=== PATIENT | male | born 1960 | race Hispanic/Latino ===

== ENCOUNTER 2016-08-05 11:13 | Outpatient (CLI) | payer BC ==
[2016-08-05 11:26] LABS: Basophils % (Auto) 0.7 % (0.0-1.8); Eosinophils % (Auto) 3.4 % (0.0-4.3); Hematocrit 44.3 % (35.5-45.6); Mean Corpuscular HGB Conc 34 % (32-34); Mean Corpuscular Hemoglobin 34 pg (28-32); Mean Corpuscular Volume 101 fl (84-94); Platelet Count 271 K/mm3 (140-440); Red Blood Count 4.39 M/mm3 (3.65-5.03); Red Cell Distribution Width 13.5 % (13.2-15.2)
[2016-08-05 12:19] LABS: Bilirubin,Urine NEG (Negative); Blood,Urine NEG (Negative); Ketones,Urine NEG (Negative); Leukocyte Esterase,Urine NEG (Negative); Mucus,Urine FEW /HPF; Nitrite,Urine NEG (Negative); Protein,Urine <15 mg/dL mg/dL (Negative); Urobilinogen,Urine < 2.0 mg/dL (<2.0)
[2016-08-05 12:29] LABS: WBC,Urine < 1.0 /HPF (0.0-6.0)
== END 2016-08-05 11:14 | disposition home or self-care (01) ==
LOC: LAB 11:13
PROVIDERS: ATTEND Anesthesiology
DX: Z79.01 Long term (current) use of anticoagulants (principal)
CPT/HCPCS: 36415; 81001; 82043; 85025; 85610

== ENCOUNTER 2018-01-23 10:31 | Outpatient (CLI) | payer BC ==
--- NOTE | 2018-01-23 12:34 | Cat Scan Report ---
CT scan of the abdomen and pelvis without IV contrast: History: Hematuria. Findings: There is focal ill-defined noncalcified nodular lesion measuring 4 mm in diameter noted at the right lung paravertebral region best seen on series 2 image 31. Normal liver spleen and pancreas. Patient status post cholecystectomy. Normal adrenals. Patient status post left nephrectomy. 3 mm and a 4 mm nonobstructing calculus right kidney. Normal bladder. No free intraperitoneal fluid or air. No evidence of adenopathy. Normal aorta. No evidence of appendicitis or diverticulitis. Gaseous colon with minimal stool in colon. Impression: Nonobstructing calculi right kidney. Patient status post left nephrectomy. Focal nodule right lung. Further evaluation is recommended.
== END 2018-01-23 10:32 | disposition home or self-care (01) ==
LOC: CT 10:31
PROVIDERS: ATTEND Urology
DX: N20.0 Calculus of kidney (principal); R91.1 Solitary pulmonary nodule; I10 Essential (primary) hypertension; E78.5 Hyperlipidemia, unspecified; E78.00 Pure hypercholesterolemia, unspecified; E66.9 Obesity, unspecified; Z87.891 Personal history of nicotine dependence; J44.9 Chronic obstructive pulmonary disease, unspecified; Z90.5 Acquired absence of kidney
CPT/HCPCS: 74176

== ENCOUNTER 2018-02-09 14:20 | Outpatient (CLI) | payer BC ==
--- NOTE | 2018-02-09 18:07 | Cat Scan Report ---
FINAL REPORT PROCEDURE: CT CHEST WO CON TECHNIQUE: Computerized axial tomography of the chest was performed without contrast material. This study is performed without intravenous contrast and the sensitivity for pathology, including neoplasms, adenopathy, abscess, pulmonary embolism and aortic dissection, is reduced. HISTORY: PULMONARY NODULE COMPARISON: CT abdomen pelvis 01/23/2018 TECHNICAL QUALITY: Satisfactory. FINDINGS: Heart and pericardium: No pericardial effusion or thickening. Coronary artery calcification is present. Thoracic aorta: Normal. Pulmonary vasculature: Normal. Lymph nodes: No enlarged thoracic lymph nodes. Lungs: No infiltrate or pulmonary lesions are identified. Previously seen medial right lung base pulmonary nodule is decreased in size, now measuring 3 millimeters and is faint in density. There is a punctate probably calcified granuloma measuring 2 millimeters in the lingula. Pleural space: No effusion, thickening, or pneumothorax. Musculoskeletal structures: Spinal stimulating device is present. Upper abdominal structures: Numerous small upper abdominal lymph nodes are present. IMPRESSION: Previously seen right lung base pulmonary nodule is resolving, now decreased in size and fainter in density.
== END 2018-02-09 14:21 | disposition home or self-care (01) ==
LOC: CT 14:20
PROVIDERS: ATTEND Specialist
DX: R91.1 Solitary pulmonary nodule (principal); E78.5 Hyperlipidemia, unspecified; I25.10 Atherosclerotic heart disease of native coronary artery without angina pectoris; E78.00 Pure hypercholesterolemia, unspecified; I10 Essential (primary) hypertension; E66.9 Obesity, unspecified; M19.90 Unspecified osteoarthritis, unspecified site; F17.210 Nicotine dependence, cigarettes, uncomplicated; Z88.6 Allergy status to analgesic agent
CPT/HCPCS: 71250

== ENCOUNTER 2018-07-07 07:54 | Outpatient (CLI) | payer BC ==
[2018-07-07] MEDS ORDERED: LEXISCAN IV ONE ×2 (09:08→09:20)
[2018-07-07 11:51] VITALS: BP 112/70
--- NOTE | 2018-07-07 22:08 | Treadmill Report ---
NUCLEAR STRESS TEST REPORT The patient was brought to the nuclear cardiology lab and a Lexiscan stress test is performed and the patient tolerated the procedure well. The patient had no significant arrhythmias or definite ischemic abnormalities or angina pectoris. Post-stress images reveal homogeneous distribution of the isotope with no significant reversibility during the rest. Accompanying gated study shows excellent systolic function with no wall motion abnormalities. Calculated ejection fraction is noted to be 71%. IMPRESSION: 1. Nuclear stress test is noted to be negative for significant reversible defects to indicate ischemia. Accompanying gated study showed excellent systolic function with no significant wall motion abnormalities. Ejection fraction is calculated to be 71%. 2. Suggest clinical correlation. JOB# [id number] KBM/NTS
== END 2018-07-07 07:55 | disposition home or self-care (01) ==
LOC: CARD 07:54
PROVIDERS: ATTEND Internal Medicine Cardiovascular Disease
DX: Z01.810 Encounter for preprocedural cardiovascular examination (principal); I25.10 Atherosclerotic heart disease of native coronary artery without angina pectoris; I25.2 Old myocardial infarction; E78.49 Other hyperlipidemia; R00.1 Bradycardia, unspecified; K21.9 Gastro-esophageal reflux disease without esophagitis; E78.5 Hyperlipidemia, unspecified; Z86.39 Personal history of other endocrine, nutritional and metabolic disease; Z95.5 Presence of coronary angioplasty implant and graft; Z87.891 Personal history of nicotine dependence
CPT/HCPCS: 78452; 93017; A9502; J2785

== ENCOUNTER 2018-07-27 06:07 | Inpatient (IN) | payer BC ==
--- NOTE | 2018-07-20 08:45 | Anesthesia Consultation ---
Anesthesia Consult and Med Hx Date of service: 07/20/18 - Airway Anesthetic Teeth Evaluation: Poor ROM Head & Neck: Adequate Mental/Hyoid Distance: Adequate Mallampati Class: Class II Intubation Access Assessment: Probably Good - Pulmonary Exam CTA: Yes - Cardiac Exam Cardiac Exam: RRR - Pre-Operative Health Status ASA Pre-Surgery Classification: ASA3 Proposed Anesthetic Plan: General Nerve Block: NO SPINAL , Pt had Multiple Back Surgeries (EF 70 % per cardiology, pt has multiple stents, hx of SD. smoker, possible art line in AM) - Pulmonary Hx Smoking: Yes (1 PPD X 45 YRS) Hx Asthma: No Hx Respiratory Symptoms: No COPD: Yes ( INHALERS PRN) Hx Pneumonia: No Hx Sleep Apnea: Yes (DX SLEEP APNEA WITH CPAP USE.) - Cardiovascular System Hx Hypertension: No Hx Coronary Artery Disease: Yes Hx Heart Attack/AMI: Yes (2004) Hx Percutaneous Transluminal Coronary Angioplasty (PTCA): Yes (X2 2004 , X 2 2014) Hx Cardia Arrhythmia: No Hx Pacemaker: No Hx Internal Defibrillator: No Hx Heart Murmur: No Hx Peripheral Vascular Disease: No - Central Nervous System Hx Neuromuscular Disorder: No (foot drop, DDD) Hx Seizures: No CVA: No Hx Back Pain: Yes (CHRONIC , WITH LEG PAIN AND WEAKNESS) Hx Psychiatric Problems: No - Gastrointestinal Hx Ulcer: Yes Hx Gastroesophageal Reflux Disease: Yes (controlled s/p ilir) - Endocrine Hx Renal Disease: Yes (polycystic kidney disease, s/p right nephrectomy) Hx End Stage Renal Disease: No Hx Insulin Dependent Diabetes: No Hx Non-Insulin Dependent Diabetes: No Hx Thyroid Disease: No - Other Systems Hx Alcohol Use: Yes (social) Hx Substance Use: No Hx Cancer: No
[~2018-07-27 06:07] MED LIST: ANCEF/STERILE WATER 2 GM/20 ML IV NR; CLORPACTIN WCS-90 IR ONE; MARCAINE 0.25% INFILTRATI ONE; MORPHINE IM ONE; NEURONTIN PO NR; PEPCID IV NR; TORADOL IM ONE
[2018-07-27] MEDS ORDERED: NACL ONE (06:33)
[2018-07-27] MEDS ORDERED: POLYMYXIN B SULFATE IV ONE ×2 (06:33→09:45)
[2018-07-27] MEDS ORDERED: TORADOL ONE (06:33)
[2018-07-27] MEDS ORDERED: MARCAINE 0.25% INFILTRATI ONE ×2 (06:33→10:49)
[2018-07-27] MEDS ORDERED: TRANEXAMIC ACID ONE (06:33)
[2018-07-27] MEDS ORDERED: BACITRACIN ONE (06:34)
[2018-07-27] MEDS ORDERED: CLORPACTIN WCS-90 IR ONE ×2 (06:34→10:20)
[2018-07-27] MEDS ORDERED: MORPHINE ONE (06:34)
[2018-07-27] MEDS: LACTATED RINGERS 1,000 ML IV SCH ×2 (06:50→15:30)
[2018-07-27 06:58] LABS: INR 1.08 (0.87-1.13)
[2018-07-27 06:59] LABS: Partial Thromboplastin Time 29.7 Sec. (24.2-36.6)
[2018-07-27] MEDS ORDERED: VERSED ONE (07:14)
[2018-07-27] MEDS ORDERED: XYLOCAINE MPF 2% ONE ×3 (07:14→10:30)
[2018-07-27] MEDS ORDERED: ZEMURON IV ONE (07:14)
[2018-07-27] MEDS ORDERED: SUBLIMAZE ONE (07:14)
[2018-07-27] MEDS ORDERED: DIPRIVAN 10 MG/ML IV ONE (07:14)
[2018-07-27] MEDS ORDERED: NACL 0.9% 250ML 250 ML ONE (07:16)
[2018-07-27] MEDS ORDERED: NACL 0.9% 200 ML ONE (07:16)
[2018-07-27] MEDS ORDERED: NACL INFILTRATI ONE (07:30)
[2018-07-27] MEDS ORDERED: TRANEXAMIC ACID IV ONE (07:50)
[2018-07-27] MEDS ORDERED: KETALAR ONE (08:14)
[2018-07-27] MEDS ORDERED: NEO SYNEPHRINE/NS Syringe(OR USE) IV ONE (08:28)
[2018-07-27] MEDS ORDERED: ACD-A 500 ML IV ONE (08:40)
[2018-07-27] MEDS ORDERED: NACL 0.9% IR ONE ×2 (08:40→09:45)
[2018-07-27] MEDS ORDERED: DILAUDID IV PRN (08:55)
[2018-07-27] MEDS ORDERED: ZOFRAN IV PRN ×3 (08:55→22:39)
[2018-07-27] MEDS ORDERED: NACL P/F VIAL (10 ML) 20 ML ONE (09:12)
[2018-07-27] MEDS ORDERED: LACTATED RINGERS 1,000 ML ONE (09:24)
[2018-07-27] MEDS ORDERED: DECADRON ONE (09:35)
[2018-07-27] MEDS ORDERED: BACITRACIN IR ONE (09:45)
[2018-07-27] MEDS ORDERED: BLOXIVERZ ONE (10:48)
[2018-07-27] MEDS ORDERED: ROBINUL ONE (10:48)
[2018-07-27] MEDS ORDERED: MORPHINE IM ONE (10:49)
[2018-07-27] MEDS ORDERED: TORADOL IM ONE (10:49)
[2018-07-27] MEDS ORDERED: PHENERGAN PR PRN (11:42)
[2018-07-27] MEDS ORDERED: NON-FORMULARY (Budesonide/Formoterol Fumarate [Symbicort 160-4.5 Mcg Inhaler] 10.2 GM) IH PRN (11:49)
[2018-07-27] MEDS ORDERED: ACLIDINIUM BROMIDE 400 MCG IH PRN (11:49)
[2018-07-27] MEDS ORDERED: SODIUM CHLORIDE FLUSH SYRINGE 10 ML IV NR (12:00)
[2018-07-27] MEDS ORDERED: PULMICORT IH PRN (12:36)
[2018-07-27] MEDS ORDERED: BROVANA NEBU IH PRN (12:39)
--- NOTE | 2018-07-27 13:27 | XRay Report ---
AP PELVIS: HISTORY: Postop ROXIE. Left hip replacement appears intact. No fracture or malalignment. Neurostimulator in the left lower quadrant is partially imaged. No evidence for pelvic fracture or diastasis. Osteonecrosis of the right femoral head with collapse is identified. IMPRESSION: Stable appearance of a left hip replacement. 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
[2018-07-27] MEDS ORDERED: NEURONTIN PO SCH ×2 (14:00→22:00)
--- NOTE | 2018-07-27 14:12 | Anesthesia Day of Surgery ---
Anesthesia Day of Surgery - Day of Surgery Patient Examined: Yes Patient H&P Reviewed: Yes Patient is NPO: Yes
--- NOTE | 2018-07-27 14:12 | Post Anesthesia Evaluation ---
- Post Anesthesia Evaluation Patient Participated: Yes Airway Patent: Yes Stable Respiratory Function: Yes Nausea/Vomiting: No Temp > 96.8F: Yes Pain Manageable: Yes Adequeate Hydration: Yes Anesthesia Complications: No
[2018-07-27] MEDS: NORCO 10/325 PO PRN ×2 (16:36→22:06)
[2018-07-27] MEDS: TORADOL IV PRN ×2 (16:36→23:59)
[2018-07-27] MEDS: ceFAZolin 2 GM in NACL 0.9% 100 ML IV SCH ×2 (17:43→23:51)
[2018-07-27] MEDS: PULMICORT IH SCH ×2 (20:06→21:26)
[2018-07-27] MEDS: BROVANA NEBU IH SCH ×2 (20:06→21:26)
[2018-07-27] MEDS: ASPIRIN PO SCH (21:56)
[2018-07-27] MEDS: COREG PO SCH (21:57)
[2018-07-27] MEDS: LIORESAL PO SCH (21:57)
[2018-07-27] MEDS: NEURONTIN PO SCH (21:58)
[2018-07-27] MEDS ORDERED: NON-FORMULARY (Famotidine [Pepcid] 20 MG) PO SCH (22:00)
[2018-07-27] MEDS ORDERED: NON-FORMULARY (Melatonin [Melatonin] 5 MG) PO SCH (22:00)
[2018-07-27] MEDS ORDERED: NON-FORMULARY (Gabapentin [Neurontin] 900 MG) PO SCH (22:00)
[2018-07-27] MEDS ORDERED: COLACE PO SCH (22:00)
[2018-07-27] MEDS ORDERED: PEPCID PO SCH (22:00)
[2018-07-27] MEDS: MUCINEX ER PO SCH (22:06)
[2018-07-27] MEDS ORDERED: ROXICODONE PO PRN (22:16)
--- NOTE | 2018-07-27 22:26 | History and Physical Report ---
History of Present Illness Date of examination: 07/27/18 Date of admission: 07/27/18 06:07 Chief complaint: He is status post left total hip replacement History of present illness: 58-year-old male with multiple medical problems including COPD hyperlipidemia hypertension peripheral neuropathy BPH depression and chronic pain admitted for left total hip arthroplasty. 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 Patient has left hip arthroplasty and in future will have a right hip arthroplasty. Patient has chronic pain. No shortness of breath Past History Past Medical History: CAD, COPD, GERD, hypertension, hyperlipidemia, other (BPH) Past Surgical History: total hip replacement (left), Other (multiple back surgeries) Social history: lives with family, full code Family history: hypertension Medications and Allergies Allergies Allergy/AdvReac Type Severity Reaction Status Date / Time No Known Allergies Allergy Verified 07/17/18 15:18 Home Medications Medication Instructions Recorded Confirmed Last Taken Type Aspirin [Aspirin BABY CHEW TAB] 81 mg PO DAILY 04/06/13 07/27/18 07/20/18 09:00 History Carvedilol [Coreg] 3.125 mg PO BID 04/06/13 07/27/18 07/27/18 05:00 History Clopidogrel [Plavix] 75 mg PO QDAY 04/06/13 07/27/18 07/20/18 09:00 History Famotidine [Pepcid] 20 mg PO BID 04/06/13 07/27/18 07/27/18 05:30 History Folic Acid 1 tab PO DAILY 04/06/13 07/27/18 07/26/18 09:00 History Fenofibrate Nanocrystallized 160 mg PO DAILY 01/29/14 07/27/18 07/26/18 21:00 History [Tricor] Gabapentin [Neurontin] 900 mg PO BID 01/29/14 07/27/18 07/26/18 21:00 History Melatonin 5 mg PO QHS 01/29/14 07/27/18 07/26/18 21:00 History Multivitamin [Multi Vitamin Daily] 1 tab PO DAILY 01/29/14 07/27/18 07/26/18 09:00 History Niacin (Nf) [Niacin] 500 mg PO HS 01/29/14 07/27/18 07/26/18 21:00 History Pravastatin Sodium [Pravastatin] 10 mg PO QHS 01/29/14 07/27/18 07/26/18 21:00 History Aclidinium [place] [Tudorza 400 mcg IH PRN PRN 07/17/18 07/27/18 07/27/18 05:00 History Pressair] Ascorbic Acid [Vitamin C] 1,000 mg PO DAILY 07/17/18 07/27/18 07/26/18 09:00 History Baclofen [Lioresal] 10 mg PO BID 07/17/18 07/27/18 07/26/18 21:00 History Budesonide/Formoterol Fumarate 10.2 gm IH PRN PRN 07/17/18 07/27/18 07/27/18 05:00 History [Symbicort 160-4.5 Mcg Inhaler] Buprenorphine [Butrans] 1 each TD QWEEK 07/17/18 07/17/18 Unknown History Docusate Sodium [Colace] 100 mg PO DAILY 07/17/18 07/27/18 07/26/18 09:00 History Esomeprazole Magnesium [NexIUM] 40 mg PO QDAY 07/17/18 07/27/18 07/26/18 09:00 History Ferrous Sulfate [Iron] 325 mg PO DAILY 07/17/18 07/27/18 07/26/18 09:00 History Oxybutynin Chloride [Ditropan Xl] 15 mg PO QDAY 07/17/18 07/27/18 07/27/18 05:00 History Oxycodone HCl/Acetaminophen 1 each PO PRN PRN 07/17/18 07/27/18 07/26/18 21:00 History [Endocet 7.5-325 mg Tablet] Sertraline [Zoloft] 200 mg PO QHS 07/17/18 07/17/18 Unknown History Tamsulosin HCl [Flomax] 0.8 mg PO DAILY 07/17/18 07/17/18 Unknown History guaiFENesin [Mucinex] 600 mg PO BID 07/17/18 07/27/18 07/26/18 21:00 History traZODone [Desyrel] 100 mg PO QHS 07/17/18 07/27/18 07/26/18 21:00 History Active Meds: Active Medications Acetaminophen/Hydrocodone Bitart (Secor 10/325) 1 each PO Q4H PRN PRN Reason: Pain, Moderate (4-6) Last Admin: 07/27/18 22:06 Dose: 1 each Documented by: Arformoterol Tartrate (Brovana Nebu) 15 mcg IH Q12H [facility] Last Admin: 07/27/18 21:26 Dose: 15 mcg Documented by: Ascorbic Acid (Vitamin C) 1,000 mg PO QDAY [facility] Aspirin (Aspirin) 325 mg PO BID [facility] Last Admin: 07/27/18 21:56 Dose: 325 mg Documented by: Baclofen (Lioresal) 10 mg PO BID [facility] Last Admin: 07/27/18 21:57 Dose: 10 mg Documented by: Budesonide (Pulmicort) 1 mg IH Q12H [facility] Last Admin: 07/27/18 21:26 Dose: 1 mg Documented by: Carvedilol (Coreg) 3.125 mg PO BID [facility] Last Admin: 07/27/18 21:57 Dose: Not Given Documented by: Celecoxib (Celebrex) 200 mg PO PREOP NR Stop: 07/27/18 23:59 Last Admin: 07/27/18 06:54 Dose: 200 mg Documented by: Docusate Sodium (Colace) 100 mg PO QOD [facility] Famotidine (Pepcid) 20 mg PO BID [facility] Last Admin: 07/27/18 21:56 Dose: 20 mg Documented by: Fenofibrate (Tricor) 160 mg PO DAILY [facility] Ferrous Sulfate (Feosol) 325 mg PO DAILY [facility] Gabapentin (Neurontin) 900 mg PO BID [facility] Last Admin: 07/27/18 21:58 Dose: 900 mg Documented by: Guaifenesin (Mucinex Er) 600 mg PO BID [facility] Last Admin: 07/27/18 22:06 Dose: 600 mg Documented by: Lactated Ringer's (Lactated Ringers) 1,000 mls @ 100 mls/hr IV DIRECT [facility] Last Admin: 07/27/18 15:30 Dose: 100 mls/hr Documented by: Cefazolin Sodium 2 gm/ Sodium (Chloride) 100 mls @ 200 mls/hr IV Q8HR [facility] Stop: 07/28/18 06:29 Last Admin: 07/27/18 17:43 Dose: 200 mls/hr Documented by: Ketorolac Tromethamine (Toradol) 15 mg IV Q6H PRN PRN Reason: Pain, Mild (1-3) Last Admin: 07/27/18 16:36 Dose: 15 mg Documented by: Magnesium Hydroxide (Milk Of Magnesia) 30 ml PO Q4H PRN PRN Reason: Constipation Miscellaneous Medication (Aclidinium [place] [Tudorza Pressair]) 400 mcg IH PRN PRN PRN Reason: Shortness Of Breath Miscellaneous Medication (Buprenorphine [Butrans]) 1 each TD QWEEK [facility] Miscellaneous Medication (Folic Acid [Folic Acid]) 1 tab PO DAILY [facility] Miscellaneous Medication (Melatonin [Melatonin]) 5 mg PO QHS [facility] Miscellaneous Medication (Niacin (Nf)) 500 mg PO HS [facility] Miscellaneous Medication (Oxybutynin Chloride [Ditropan Xl]) 15 mg PO QDAY [facility] Miscellaneous Medication (Oxycodone Hcl/Acetaminophen [Endocet 7.5-325 Mg Tablet]) 1 each PO PRN PRN PRN Reason: Pain , Severe (7-10) Miscellaneous Medication (Pravastatin Sodium [Pravastatin]) 10 mg PO QHS [facility] Ondansetron HCl (Zofran) 4 mg IV Q8H PRN PRN Reason: Nausea And Vomiting Pantoprazole Sodium (Protonix) 40 mg PO DAILY [facility] Promethazine HCl (Phenergan) 25 mg IN Q6H PRN PRN Reason: Nausea And Vomiting Sertraline HCl (Zoloft) 200 mg PO QHS [facility] Sodium Chloride (Sodium Chloride Flush Syringe 10 Ml) 10 ml IV PRN NR Stop: 07/30/18 11:59 Tamsulosin HCl (Flomax) 0.8 mg PO DAILY [facility] Trazodone HCl (Desyrel) 100 mg PO QHS [facility] Review of Systems All systems: negative Exam - Constitutional Vitals: Temp Pulse Resp BP Pulse Ox 98.4 F 63 18 90/48 98 07/27/18 20:05 07/27/18 21:32 07/27/18 21:32 07/27/18 21:57 07/27/18 21:33 General appearance: Present: no acute distress, well-nourished - EENT Eyes: Present: PERRL ENT: hearing intact, clear oral mucosa - Neck Neck: Present: supple, normal ROM - Respiratory Respiratory effort: normal Respiratory: bilateral: CTA - Cardiovascular Heart rate: 78 Rhythm: regular Heart Sounds: Present: S1 & S2. Absent: rub, click - Extremities Extremities: no ischemia, pulses intact, pulses symmetrical, No edema Peripheral Pulses: within normal limits - Abdominal General gastrointestinal: Present: soft, non-tender, non-distended, normal bowel sounds Male genitourinary: Present: normal - Rectal Rectal Exam: deferred - Integumentary Integumentary: Present: clear, warm, dry - Musculoskeletal Musculoskeletal: gait normal, strength equal bilaterally - Psychiatric Psychiatric: appropriate mood/affect, intact judgment & insight - Neurologic Neurologic: CNII-XII intact, moves all extremities - Allied Health Allied health notes reviewed: nursing, case management Results - Labs Labs: Laboratory Last Values PT 14.4 Sec. (12.2-14.9) 07/27/18 06:35 INR 1.08 (0.87-1.13) 07/27/18 06:35 APTT 29.7 Sec. (24.2-36.6) 07/27/18 06:35 POC Glucose 237 (70-105) H 07/27/18 22:15 Blood Type AB POSITIVE 07/27/18 06:35 Antibody Screen Negative 07/27/18 06:35 Assessment and Plan Advance Directives: Yes (full code) VTE prophylaxis?: Chemical, Mechanical Plan of care discussed with patient/family: Yes - Patient Problems (1) S/P total hip arthroplasty Current Visit: Yes Status: Acute Qualifiers: Laterality: left Qualified Code(s): Z96.642 - Presence of left artificial hip joint Plan to address problem: PT and OT to continue Pain management (2) CAD (coronary artery disease) Current Visit: No Status: Chronic Qualifiers: Coronary Disease-Associated Artery/Lesion type: [place] artery Plan to address problem: Plavix on hold and aspirin on hold (3) BPH (benign prostatic hyperplasia) Current Visit: Yes Status: Chronic Qualifiers: Lower urinary tract symptom presence: symptoms present Plan to address problem: Continue Flomax (4) GERD (gastroesophageal reflux disease) Current Visit: No Status: Chronic (5) Hyperlipidemia Current Visit: No Status: Chronic Qualifiers: Hyperlipidemia type: mixed hyperlipidemia Qualified Code(s): E78.2 - Mixed hyperlipidemia Plan to address problem: Continue fenofibrate and statins (6) Hypertension Current Visit: Yes Status: Chronic Qualifiers: Hypertension type: essential hypertension Qualified Code(s): I10 - Essential (primary) hypertension Plan to address problem: Continue antihypertensives (7) COPD (chronic obstructive pulmonary disease) Current Visit: Yes Status: Chronic Qualifiers: COPD type: unspecified COPD Qualified Code(s): J44.9 - Chronic obstructive pulmonary disease, unspecified Plan to address problem: Continue Symbicort and DuoNeb (8) DVT prophylaxis Current Visit: No Status: Acute Plan to address problem: SCDs and GI prophylaxis (9) Discharge planning issues Current Visit: Yes Status: Acute Plan to address problem: As per
[2018-07-27] MEDS ORDERED: AMBIEN PO PRN (22:39)
[2018-07-27] MEDS ORDERED: SODIUM CHLORIDE FLUSH SYRINGE 10 ML IV PRN (22:39)
[2018-07-27] MEDS ORDERED: TYLENOL PO PRN (22:39)
[2018-07-28] MEDS: BROVANA NEBU IH SCH ×3 (01:51→20:47)
[2018-07-28] MEDS: PULMICORT IH SCH ×3 (01:51→20:47)
[2018-07-28] MEDS: PERCOCET 5/325 PO PRN ×3 (02:20→17:36)
[2018-07-28] MEDS: LACTATED RINGERS 1,000 ML IV SCH (02:20)
[2018-07-28] MEDS ORDERED: NACL 0.9% 1000 ML 1,000 ML IV ONE (05:01)
[2018-07-28 06:14] LABS: Basophils % (Auto) 0.1 % (0.0-1.8); Eosinophils % (Auto) 0.1 % (0.0-4.3); Hematocrit 33.7 % (35.5-45.6); Hemoglobin 11.3 gm/dl (11.8-15.2); Lymphocytes # (Auto) 2.3 K/mm3 (1.2-5.4); Lymphocytes % (Auto) 16.7 % (13.4-35.0); Mean Corpuscular HGB Conc 33 % (32-34); Mean Corpuscular Volume 93 fl (84-94); Monocytes # (Auto) 1.2 K/mm3 (0.0-0.8); Monocytes % (Auto) 8.6 % (0.0-7.3); Platelet Count 247 K/mm3 (140-440); Red Blood Count 3.61 M/mm3 (3.65-5.03); Red Cell Distribution Width 13.8 % (13.2-15.2)
[2018-07-28] MEDS: ceFAZolin 2 GM in NACL 0.9% 100 ML IV SCH (06:21)
[2018-07-28 06:47] LABS: BUN/Creatinine Ratio 13; Blood Urea Nitrogen 9 mg/dL (9-20); Hemolysis Index 4
[2018-07-28] MEDS: TORADOL IV PRN ×2 (08:35→20:38)
[2018-07-28] MEDS ORDERED: COLACE PO SCH (10:00)
[2018-07-28] MEDS ORDERED: NON-FORMULARY (Folic Acid [Folic Acid] 1 TAB) PO SCH (10:00)
[2018-07-28] MEDS ORDERED: NON-FORMULARY (Esomeprazole Magnesium [Nexium] 40 MG) PO SCH (10:00)
[2018-07-28] MEDS ORDERED: NON-FORMULARY (Ascorbic Acid [Vitamin C] 1,000 MG) PO SCH (10:00)
[2018-07-28] MEDS: FEOSOL PO SCH (10:37)
[2018-07-28] MEDS: FLOMAX PO SCH (10:37)
[2018-07-28] MEDS: LIORESAL PO SCH ×2 (10:37→22:28)
[2018-07-28] MEDS: ASPIRIN PO SCH ×2 (10:38→22:25)
[2018-07-28] MEDS: PROTONIX PO SCH (10:39)
[2018-07-28] MEDS: NEURONTIN PO SCH ×3 (10:39→22:27)
[2018-07-28] MEDS: DITROPAN XL PO SCH (10:40)
[2018-07-28] MEDS: TRICOR PO SCH (10:40)
[2018-07-28] MEDS: MUCINEX ER PO SCH ×2 (10:41→22:25)
[2018-07-28] MEDS: HABITROL TD SCH (13:33)
[2018-07-28] MEDS: FOLVITE PO SCH (13:38)
[2018-07-28] MEDS: SODIUM CHLORIDE FLUSH SYRINGE 10 ML IV SCH (13:39)
--- NOTE | 2018-07-28 15:33 | Progress Note ---
Subjective Date of service: 07/28/18 Interval history: pod1, doing well. ROXIE left side doing well, NVI dressing dry hip precautions explaineed. pillow n high chair high toilet seat recommended. DVT prophylaxsis- ASA 325 mg PO BID. Patient to start plaxix after 1 week as per civil cadd technician and that time may be switch to 81 mg BID asprin. Objective Vital signs: Vital Signs - 12hr 07/28/18 07/28/18 07/28/18 04:32 06:33 07:46 Temperature 97.3 F L Pulse Rate 60 61 Pulse Rate [ Anterior Bilateral] Respiratory 18 Rate Respiratory Rate [Anterior Bilateral] Blood Pressure 83/42 98/51 Blood Pressure 92/46 [Right] O2 Sat by Pulse 97 96 Oximetry 07/28/18 07/28/18 07/28/18 08:00 08:15 08:35 Temperature 98.6 F Pulse Rate Pulse Rate [ 76 78 Anterior Bilateral] Respiratory Rate Respiratory 18 18 Rate [Anterior Bilateral] Blood Pressure Blood Pressure [Right] O2 Sat by Pulse 98 95 Oximetry 07/28/18 07/28/18 11:40 11:41 Temperature 97.8 F Pulse Rate 79 Pulse Rate [ Anterior Bilateral] Respiratory 18 Rate Respiratory Rate [Anterior Bilateral] Blood Pressure 101/49 Blood Pressure [Right] O2 Sat by Pulse 97 Oximetry - Labs CBC & BMP: 07/28/18 06:03 07/28/18 06:03 Labs: Abnormal lab results 07/27/18 07/27/18 07/28/18 Range/Units 16:42 22:15 06:03 WBC 14.0 H (4.5-11.0) K/mm3 RBC 3.61 L (3.65-5.03) M/mm3 Hgb 11.3 L (11.8-15.2) gm/dl Hct 33.7 L (35.5-45.6) % [place] % (Auto) 8.6 H (0.0-7.3) % [place] # 1.2 H (0.0-0.8) K/mm3 Seg Neutrophils % 74.5 H (40.0-70.0) % Seg Neutrophils # 10.4 H (1.8-7.7) K/mm3 Creatinine (0.8-1.5) mg/dL Glucose (75-100) mg/dL POC Glucose 136 H 237 H (70-105) Calcium (8.4-10.2) mg/dL 07/28/18 Range/Units 06:03 WBC (4.5-11.0) K/mm3 RBC (3.65-5.03) M/mm3 Hgb (11.8-15.2) gm/dl Hct (35.5-45.6) % [place] % (Auto) (0.0-7.3) % [place] # (0.0-0.8) K/mm3 Seg Neutrophils % (40.0-70.0) % Seg Neutrophils # (1.8-7.7) K/mm3 Creatinine 0.7 L (0.8-1.5) mg/dL Glucose 122 H (75-100) mg/dL POC Glucose (70-105) Calcium 8.0 L (8.4-10.2) mg/dL
--- NOTE | 2018-07-28 16:04 | Progress Note ---
Assessment and Plan Assessment and plan: (1) S/P total hip arthroplasty Current Visit: Yes Status: Acute Qualifiers: Laterality: left Qualified Code(s): Z96.642 - Presence of left artificial hip joint Plan to address problem: PT and OT to continue Pain management (2) CAD (coronary artery disease) Current Visit: No Status: Chronic Qualifiers: Coronary Disease-Associated Artery/Lesion type: [place] artery Plan to address problem: Plavix on hold and aspirin on hold (3) BPH (benign prostatic hyperplasia) Current Visit: Yes Status: Chronic Qualifiers: Lower urinary tract symptom presence: symptoms present Plan to address problem: Continue Flomax (4) GERD (gastroesophageal reflux disease) Current Visit: No Status: Chronic (5) Hyperlipidemia Current Visit: No Status: Chronic Qualifiers: Hyperlipidemia type: mixed hyperlipidemia Qualified Code(s): E78.2 - Mixed hyperlipidemia Plan to address problem: Continue fenofibrate and statins (6) Hypertension Current Visit: Yes Status: Chronic Qualifiers: Hypertension type: essential hypertension Qualified Code(s): I10 - Essential (primary) hypertension Plan to address problem: Continue antihypertensives (7) COPD (chronic obstructive pulmonary disease) Current Visit: Yes Status: Chronic Qualifiers: COPD type: unspecified COPD Qualified Code(s): J44.9 - Chronic obstructive pulmonary disease, unspecified Plan to address problem: Continue Symbicort and DuoNeb (8) DVT prophylaxis Current Visit: No Status: Acute Plan to address problem: SCDs and GI prophylaxis (9) Discharge planning issues Current Visit: Yes Status: Acute Plan to address problem: As per History Interval history: I have seen and evaluated the patient at the bedside, he is complaining of pain mostly on the back. Hospitalist Physical - Physical exam Narrative exam: Not in cardiopulmonary distress. The patient appeared well nourished and normally developed. Vital signs as documented. Head exam is unremarkable. No scleral icterus . Neck is without jugular venous distension, thyromegaly, or carotid bruits. Lungs are clear to auscultation. Cardiac exam reveals regular rate and Rhythm. First and second heart sounds normal. No murmurs, rubs or gallops. Abdominal exam reveals normal bowel sounds, no masses, no organomegaly and no aortic enlargement. Extremities status post left hip replacement. CONTACT REPRESENTATIVE: Alert and oriented 3. No focal weakness. - Constitutional Vitals: Temp Pulse Resp BP Pulse Ox 98.1 F 74 18 103/52 94 07/28/18 15:28 07/28/18 15:28 07/28/18 15:28 07/28/18 15:28 07/28/18 15:28 General appearance: Present: no acute distress, well-nourished Results - Labs CBC & Chem 7: 07/28/18 06:03 07/28/18 06:03 Labs: Laboratory Last Values WBC 14.0 K/mm3 (4.5-11.0) H 07/28/18 06:03 RBC 3.61 M/mm3 (3.65-5.03) L 07/28/18 06:03 Hgb 11.3 gm/dl (11.8-15.2) L 07/28/18 06:03 Hct 33.7 % (35.5-45.6) L 07/28/18 06:03 MCV 93 fl (84-94) 07/28/18 06:03 MCH 31 pg (28-32) 07/28/18 06:03 MCHC 33 % (32-34) 07/28/18 06:03 RDW 13.8 % (13.2-15.2) 07/28/18 06:03 Plt Count 247 K/mm3 (140-440) 07/28/18 06:03 Lymph % (Auto) 16.7 % (13.4-35.0) 07/28/18 06:03 [place] % (Auto) 8.6 % (0.0-7.3) H 07/28/18 06:03 Eos % (Auto) 0.1 % (0.0-4.3) 07/28/18 06:03 Baso % (Auto) 0.1 % (0.0-1.8) 07/28/18 06:03 Lymph # 2.3 K/mm3 (1.2-5.4) 07/28/18 06:03 [place] # 1.2 K/mm3 (0.0-0.8) H 07/28/18 06:03 Eos # 0.0 K/mm3 (0.0-0.4) 07/28/18 06:03 Baso # 0.0 K/mm3 (0.0-0.1) 07/28/18 06:03 Seg Neutrophils % 74.5 % (40.0-70.0) H 07/28/18 06:03 Seg Neutrophils # 10.4 K/mm3 (1.8-7.7) H 07/28/18 06:03 PT 14.4 Sec. (12.2-14.9) 07/27/18 06:35 INR 1.08 (0.87-1.13) 07/27/18 06:35 APTT 29.7 Sec. (24.2-36.6) 07/27/18 06:35 Sodium 141 mmol/L (137-145) 07/28/18 06:03 Potassium 3.8 mmol/L (3.6-5.0) 07/28/18 06:03 Chloride 105.4 mmol/L (98-107) 07/28/18 06:03 Carbon Dioxide 27 mmol/L (22-30) 07/28/18 06:03 Anion Gap 12 mmol/L 07/28/18 06:03 BUN 9 mg/dL (9-20) 07/28/18 06:03 Creatinine 0.7 mg/dL (0.8-1.5) L 07/28/18 06:03 Estimated GFR > 60 ml/min 07/28/18 06:03 BUN/Creatinine Ratio 13 % 07/28/18 06:03 Glucose 122 mg/dL (75-100) H 07/28/18 06:03 POC Glucose 237 (70-105) H 07/27/18 22:15 Calcium 8.0 mg/dL (8.4-10.2) L 07/28/18 06:03 Blood Type AB POSITIVE 07/27/18 06:35 Antibody Screen Negative 07/27/18 06:35 Nutrition/Malnutrition Assess - Dietary Evaluation Nutrition/Malnutrition Findings: Nutrition Notes Start: 07/28/18 12:08 Freq: Status: Active Protocol: Document 07/28/18 12:08 LM (Rec: 07/28/18 12:46 LM [id number]) Co-Sign 07/28/18 12:08 LP Nutrition Notes Need for Assessment generated from: ultrasound technologist sonographer Initial or Follow up Assessment Current Diagnosis COPD Diabetes Hypertension Hyperlipidemia Other Pertinent Diagnosis S/P L hip replacement, peripheral neuropathy, BPH Current Diet Regular diet Labs/Tests BG 122 Pertinent Medications Reviewed Height 5 ft 10 in Weight 71.21 kg Usual Body Weight 104 kg [place] Body Weight (lbs) 166.0 BMI 22.5 Weight change and time frame Pt stated he has lost 70 lb since February 2017 Subjective/Other Information Consult for MST. 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 Offered pt Ensure but pt stated he was diabetic. No Dx of DM in chart. Offered Glucerna to pt. Burn Absent Trauma Absent #1 Nutrition Diagnosis Inadequate oral intake Etiology Chronic illness As Evidenced by Signs and Symptoms 70 lb weight loss in 1.5 years , decreased appetite Is patient on ventilator? No Is Patient Ambulatory and/or Out of Bed No REE-([facility]-confined to bed) 9826.096 Calculation Used for Recommendations [facility] Additional Notes Protein needs: 71-85 g (1-1.2 g/kg) Fluids: 1 mL/kcal Nutrition Intervention Change Diet Order: Continue regular Add Supplement/Snack (indicate name/kcal Glucerna strawberry BID /protein ) Provides kCal: 440 Provides Protein (gm) 20 Goal #1 Meet at least 75% of energy and protein needs Anticipated Discharge Needs: Consistent CHO Follow-Up By: 07/31/18 Additional Comments F/U for PO/ONS intakes
[2018-07-28] MEDS: COREG PO SCH (17:49)
--- NOTE | 2018-07-28 21:28 | Operative Report ---
AGE: 58 SEX: Male. PREOPERATIVE DIAGNOSES: Severe advanced osteoarthritis, left hip joint and collapsed avascular necrosis, left hip joint. POSTOPERATIVE DIAGNOSES: Severe advanced osteoarthritis, left hip joint and collapsed avascular necrosis, left hip joint. PROCEDURES PERFORMED: 1. Left total hip replacement. 2. Synovectomy, left hip joint. COMPLICATIONS: None. BLOOD LOSS: Less than 300 mL. IMPLANTS USED: Biomet acetabular component. Primary G7 acetabular shell through cluster holes, supplemented with one 6.5 mm screw, dual mobility bearing surface, G7 acetabular dual mobility acetabular liner, neutral liner with a dual mobility bearing surface, size 42 x 28 mm all poly, and BIOLOX ceramic delta femoral head, and -3 neck length. STEM: A Taperloc extended offset size 14 mm, Taperloc extended offset stem. BRIEF HISTORY: The patient had a painful bilateral avascular necrosis with collapse and severe osteoarthritis with stiff hip, elected for left hip to start with, and patient has tried and failed conservative treatment, opted for surgical intervention. DETAILS OF THE OPERATIVE REPORT: The patient was taken to the operating room. After smooth general endotracheal anesthesia, all the bony prominences were carefully padded, placed on the supine position. Scales catheter placed given his urine incontinence issues and then placed on the right lateral decubitus position with the left side up. The patient was given 2 gram Ancef half an hour before the procedure along with a gram of TXA. Left hip and left lower extremity prepped and draped in sterile fashion. Posterolateral approach was made. Incision was carried down deep to subcutaneous tissue and the extensor fascia was exposed. Tensor fascia incised in the interval between gluteus isabel and tensor fascia muscle. The patient has had a nerve stimulator on the left hip area in the gluteal area, which was never exposed and our dissection was all the way anterior to it. Post-short external rotators and posterior capsule short external rotators were exposed. Gluteus medius and minimus muscle were then identified and retracted. Short external rotators were tacked with 0 Ethibond sutures and they were taken off from the greater trochanter using Bovie. Posterior capsule exposed. Trapdoor based capsulotomy done and tacked with 0 Ethibond sutures. Hip joint was then identified. Significant synovitis and synovial proliferation noticed and synovectomy performed. Hip joint was identified and femoral neck osteotomy was performed about 1 cm above the lesser trochanter as templated preoperatively. Lesser trochanter to center distance close to 55-58 mm. The head was completely collapsed with ring osteophytes. Once the head was delivered out, attention was drawn on the acetabulum. Anterior, posterior, and inferior retractors were placed. The pulvinar was cleaned. The labrum was removed. We started reaming with size 48 reamer. We gradually increased the size to 51 reamer, which gave us a great fit and reamed for a good hemispherical cup and inserted a 52 cup in about 40 degree abducted and 20 degree forward flexed position. We supplemented with one 6.5 mm screw. Once this was done, impinging osteophytes were removed. Trial liner was then placed. Attention was drawn to femoral side to prepare for the Taperloc stem as templated preoperatively. The junction of the neck and the trochanter was cleaned and we started preparing for Taperloc stem using box osteotome, canal finder, lateralizing reamer, and started broaching with size 4 broach, gradually increased the size to a size 14 broach, which gave us great fit to torque testing. We trialed with standard and extended offset and a 0 -3 head with -3 head and neck length. We had equal leg lengths in knee and heel level. Out LTC matched and with extended offset, we had better stability. We had full extension, full external rotation. No impingement or dislocation. With 90 degree flexion, abducted position, we could internally tolerate up to 80-90 degrees. In 90 degree flexed and adducted position, we could internally rotate up to 70-80 degree as well. We could flex up to 130 degrees. We had better stability with the dual mobility bearing surface compared to the regular bearing surface. Given the patient's history of chronic back stiffness and fusion, we opted to go for better stability and the dual mobility bearing surface real implants were used after the trial components were removed. The real liner was impacted in place and well seated. Following that, the real stem after thorough washing of the hip was inserted in about 15 degree anteverted position and trunnion was cleaned and dried. The dual mobility bearing surface assembled on the back table was then inserted into the hip joint. It was then reduced and moved through range of motion and found to be extremely stable. Following that, thorough washing was performed with antibiotic-soaked normal saline followed by normal saline. Clorpactin irrigation was done. Posterior capsule and short external rotators were then tacked through drill holes made in the greater trochanter. Tensor fascia was closed with 0 Vicryl sutures interrupted. Subcutaneous tissue was closed with 0 and 2-0 Vicryl interrupted sutures. Skin was closed with Monocryl. Aquacel dressing done. The patient tolerated the procedure very well, shifted to recovery room in a stable condition. Sponge and needle count was correct. JOB# [id number] CARLOS/BRANDIE
[2018-07-28] MEDS: NIASPAN ER PO SCH (22:25)
[2018-07-28] MEDS: ZOLOFT PO SCH (22:25)
[2018-07-28] MEDS: PRAVACHOL PO SCH (22:28)
[2018-07-28] MEDS: DESYREL PO SCH (22:29)
[2018-07-29] MEDS: PERCOCET 5/325 PO PRN ×3 (08:36→22:11)
[2018-07-29] MEDS: LIORESAL PO SCH ×3 (08:37→22:03)
[2018-07-29] MEDS: FEOSOL PO SCH ×2 (08:37→10:00)
[2018-07-29] MEDS: ASPIRIN PO SCH ×3 (08:37→22:03)
[2018-07-29] MEDS: NEURONTIN PO SCH ×3 (08:37→22:03)
[2018-07-29] MEDS: FLOMAX PO SCH ×2 (08:38→10:00)
[2018-07-29] MEDS: FOLVITE PO SCH ×2 (08:38→10:00)
[2018-07-29] MEDS: VITAMIN C PO SCH ×3 (08:39→19:42)
[2018-07-29] MEDS: DITROPAN XL PO SCH ×2 (08:39→10:00)
[2018-07-29] MEDS: HABITROL TD SCH ×2 (08:40→10:00)
[2018-07-29] MEDS: COLACE PO SCH ×2 (08:40→10:00)
[2018-07-29] MEDS: PROTONIX PO SCH ×2 (08:40→10:00)
[2018-07-29] MEDS: MUCINEX ER PO SCH ×3 (08:41→22:03)
[2018-07-29] MEDS: TRICOR PO SCH ×2 (08:43→10:00)
[2018-07-29] MEDS: SODIUM CHLORIDE FLUSH SYRINGE 10 ML IV SCH ×3 (10:00→22:04)
[2018-07-29] MEDS: PULMICORT IH SCH ×2 (10:43→19:44)
[2018-07-29] MEDS: BROVANA NEBU IH SCH ×2 (10:43→19:44)
--- NOTE | 2018-07-29 13:52 | Progress Note ---
Assessment and Plan Assessment and plan: (1) S/P total hip arthroplasty Current Visit: Yes Status: Acute Qualifiers: Laterality: left Qualified Code(s): Z96.642 - Presence of left artificial hip joint Plan to address problem: PT and OT to continue Pain management (2) CAD (coronary artery disease) Current Visit: No Status: Chronic Qualifiers: Coronary Disease-Associated Artery/Lesion type: [place] artery Plan to address problem: Plavix on hold and aspirin on hold (3) BPH (benign prostatic hyperplasia) Current Visit: Yes Status: Chronic Qualifiers: Lower urinary tract symptom presence: symptoms present Plan to address problem: Continue Flomax (4) GERD (gastroesophageal reflux disease) Current Visit: No Status: Chronic (5) Hyperlipidemia Current Visit: No Status: Chronic Qualifiers: Hyperlipidemia type: mixed hyperlipidemia Qualified Code(s): E78.2 - Mixed hyperlipidemia Plan to address problem: Continue fenofibrate and statins (6) Hypertension Current Visit: Yes Status: Chronic Qualifiers: Hypertension type: essential hypertension Qualified Code(s): I10 - Essential (primary) hypertension Plan to address problem: Continue antihypertensives (7) COPD (chronic obstructive pulmonary disease) Current Visit: Yes Status: Chronic Qualifiers: COPD type: unspecified COPD Qualified Code(s): J44.9 - Chronic obstructive pulmonary disease, unspecified Plan to address problem: Continue Symbicort and DuoNeb (8) DVT prophylaxis Current Visit: No Status: Acute Plan to address problem: SCDs and GI prophylaxis (9) Discharge planning issues Current Visit: Yes Status: Acute Plan to address problem: As per History Interval history: I have seen and evaluated the patient at the bedside, patient's pain is controlled. Hospitalist Physical - Physical exam Narrative exam: Not in cardiopulmonary distress. The patient appeared well nourished and normally developed. Vital signs as documented. Head exam is unremarkable. No scleral icterus . Neck is without jugular venous distension, thyromegaly, or carotid bruits. Lungs are clear to auscultation. Cardiac exam reveals regular rate and Rhythm. First and second heart sounds normal. No murmurs, rubs or gallops. Abdominal exam reveals normal bowel sounds, no masses, no organomegaly and no aortic enlargement. Extremities status post left hip replacement. 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 No focal weakness. - Constitutional Vitals: Temp Pulse Resp BP Pulse Ox 98.0 F 70 18 82/45 96 07/29/18 11:31 07/29/18 11:31 07/29/18 11:31 07/29/18 11:31 07/29/18 11:31 General appearance: Present: no acute distress, well-nourished Results - Labs CBC & Chem 7: 07/28/18 06:03 07/28/18 06:03 Labs: Laboratory Last Values WBC 14.0 K/mm3 (4.5-11.0) H 07/28/18 06:03 RBC 3.61 M/mm3 (3.65-5.03) L 07/28/18 06:03 Hgb 11.3 gm/dl (11.8-15.2) L 07/28/18 06:03 Hct 33.7 % (35.5-45.6) L 07/28/18 06:03 MCV 93 fl (84-94) 07/28/18 06:03 MCH 31 pg (28-32) 07/28/18 06:03 MCHC 33 % (32-34) 07/28/18 06:03 RDW 13.8 % (13.2-15.2) 07/28/18 06:03 Plt Count 247 K/mm3 (140-440) 07/28/18 06:03 Lymph % (Auto) 16.7 % (13.4-35.0) 07/28/18 06:03 [place] % (Auto) 8.6 % (0.0-7.3) H 07/28/18 06:03 Eos % (Auto) 0.1 % (0.0-4.3) 07/28/18 06:03 Baso % (Auto) 0.1 % (0.0-1.8) 07/28/18 06:03 Lymph # 2.3 K/mm3 (1.2-5.4) 07/28/18 06:03 [place] # 1.2 K/mm3 (0.0-0.8) H 07/28/18 06:03 Eos # 0.0 K/mm3 (0.0-0.4) 07/28/18 06:03 Baso # 0.0 K/mm3 (0.0-0.1) 07/28/18 06:03 Seg Neutrophils % 74.5 % (40.0-70.0) H 07/28/18 06:03 Seg Neutrophils # 10.4 K/mm3 (1.8-7.7) H 07/28/18 06:03 PT 14.4 Sec. (12.2-14.9) 07/27/18 06:35 INR 1.08 (0.87-1.13) 07/27/18 06:35 APTT 29.7 Sec. (24.2-36.6) 07/27/18 06:35 Sodium 141 mmol/L (137-145) 07/28/18 06:03 Potassium 3.8 mmol/L (3.6-5.0) 07/28/18 06:03 Chloride 105.4 mmol/L (98-107) 07/28/18 06:03 Carbon Dioxide 27 mmol/L (22-30) 07/28/18 06:03 Anion Gap 12 mmol/L 07/28/18 06:03 BUN 9 mg/dL (9-20) 07/28/18 06:03 Creatinine 0.7 mg/dL (0.8-1.5) L 07/28/18 06:03 Estimated GFR > 60 ml/min 07/28/18 06:03 BUN/Creatinine Ratio 13 % 07/28/18 06:03 Glucose 122 mg/dL (75-100) H 07/28/18 06:03 POC Glucose 237 (70-105) H 07/27/18 22:15 Calcium 8.0 mg/dL (8.4-10.2) L 07/28/18 06:03 Blood Type AB POSITIVE 07/27/18 06:35 Antibody Screen Negative 07/27/18 06:35 Nutrition/Malnutrition Assess - Dietary Evaluation Nutrition/Malnutrition Findings: Nutrition Notes Start: 07/28/18 12:08 Freq: Status: Active Protocol: Document 07/28/18 12:08 LM (Rec: 07/28/18 12:46 LM [id number]) Co-Sign 07/28/18 12:08 LP Nutrition Notes 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 Offered pt Ensure but pt stated he was diabetic. No Dx of DM in chart. Offered Glucerna to pt. Burn Absent Trauma Absent #1 Nutrition Diagnosis Inadequate oral intake Etiology Chronic illness As Evidenced by Signs and Symptoms 70 lb weight loss in 1.5 years , decreased appetite Is patient on ventilator? No Is Patient Ambulatory and/or Out of Bed No REE-([place] Jeor-confined to bed) [phone] Calculation Used for Recommendations [facility] Additional Notes Protein needs: 71-85 g (1-1.2 g/kg) Fluids: 1 mL/kcal Nutrition Intervention Change Diet Order: Continue regular Add Supplement/Snack (indicate name/kcal Glucerna strawberry BID /protein ) Provides kCal: 440 Provides Protein (gm) 20 Goal #1 Meet at least 75% of energy and protein needs Anticipated Discharge Needs: Consistent CHO Follow-Up By: 07/31/18 Additional Comments F/U for PO/ONS intakes
[2018-07-29] MEDS: PRAVACHOL PO SCH (22:02)
[2018-07-29] MEDS: DESYREL PO SCH (22:03)
[2018-07-29] MEDS: NIASPAN ER PO SCH (22:03)
[2018-07-29] MEDS: ZOLOFT PO SCH (22:03)
[2018-07-30] MEDS: PULMICORT IH SCH ×2 (07:50→19:37)
[2018-07-30] MEDS: BROVANA NEBU IH SCH ×2 (07:50→19:37)
[2018-07-30] MEDS: ASPIRIN PO SCH ×2 (09:35→22:12)
[2018-07-30] MEDS: LIORESAL PO SCH ×2 (09:36→22:12)
[2018-07-30] MEDS: FEOSOL PO SCH (09:36)
[2018-07-30] MEDS: HABITROL TD SCH (09:37)
[2018-07-30] MEDS: NEURONTIN PO SCH ×2 (09:42→22:11)
[2018-07-30] MEDS: FLOMAX PO SCH (09:43)
[2018-07-30] MEDS: PERCOCET 5/325 PO PRN ×2 (09:43→22:16)
[2018-07-30] MEDS: VITAMIN C PO SCH (09:45)
[2018-07-30] MEDS: TRICOR PO SCH (09:45)
[2018-07-30] MEDS: FOLVITE PO SCH (09:45)
[2018-07-30] MEDS: PROTONIX PO SCH (09:45)
[2018-07-30] MEDS: DITROPAN XL PO SCH (09:46)
[2018-07-30] MEDS: MUCINEX ER PO SCH ×2 (09:46→22:12)
[2018-07-30] MEDS: SODIUM CHLORIDE FLUSH SYRINGE 10 ML IV SCH (10:00)
--- NOTE | 2018-07-30 12:38 | Progress Note ---
Assessment and Plan Assessment and plan: (1) S/P total hip arthroplasty Current Visit: Yes Status: Acute Qualifiers: Laterality: left Qualified Code(s): Z96.642 - Presence of left artificial hip joint Plan to address problem: PT and OT to continue Pain management (2) CAD (coronary artery disease) Current Visit: No Status: Chronic Qualifiers: Coronary Disease-Associated Artery/Lesion type: [place] artery Plan to address problem: Plavix on hold and aspirin on hold (3) BPH (benign prostatic hyperplasia) Current Visit: Yes Status: Chronic Qualifiers: Lower urinary tract symptom presence: symptoms present Plan to address problem: Continue Flomax (4) GERD (gastroesophageal reflux disease) Current Visit: No Status: Chronic (5) Hyperlipidemia Current Visit: No Status: Chronic Qualifiers: Hyperlipidemia type: mixed hyperlipidemia Qualified Code(s): E78.2 - Mixed hyperlipidemia Plan to address problem: Continue fenofibrate and statins (6) Hypertension Current Visit: Yes Status: Chronic Qualifiers: Hypertension type: essential hypertension Qualified Code(s): I10 - Essential (primary) hypertension Plan to address problem: Continue antihypertensives (7) COPD (chronic obstructive pulmonary disease) Current Visit: Yes Status: Chronic Qualifiers: COPD type: unspecified COPD Qualified Code(s): J44.9 - Chronic obstructive pulmonary disease, unspecified Plan to address problem: Continue Symbicort and DuoNeb (8) DVT prophylaxis Current Visit: No Status: Acute Plan to address problem: SCDs and GI prophylaxis (9) Discharge planning issues Current Visit: Yes Status: Acute Plan to address problem: As per History Interval history: I have seen and evaluated the patient at the bedside, patient's pain is controlled. Hospitalist Physical - Physical exam Narrative exam: Not in cardiopulmonary distress. The patient appeared well nourished and normally developed. Vital signs as documented. Head exam is unremarkable. No scleral icterus . Neck is without jugular venous distension, thyromegaly, or carotid bruits. Lungs are clear to auscultation. Cardiac exam reveals regular rate and Rhythm. First and second heart sounds normal. No murmurs, rubs or gallops. Abdominal exam reveals normal bowel sounds, no masses, no organomegaly and no aortic enlargement. Extremities status post left hip replacement. 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 No focal weakness. - Constitutional Vitals: Temp Pulse Resp BP Pulse Ox 98.0 F 75 16 104/72 95 07/30/18 07:01 07/30/18 08:00 07/30/18 08:00 07/30/18 07:01 07/30/18 09:50 General appearance: Present: no acute distress, well-nourished Results - Labs CBC & Chem 7: 07/28/18 06:03 07/28/18 06:03 Labs: Laboratory Last Values WBC 14.0 K/mm3 (4.5-11.0) H 07/28/18 06:03 RBC 3.61 M/mm3 (3.65-5.03) L 07/28/18 06:03 Hgb 11.3 gm/dl (11.8-15.2) L 07/28/18 06:03 Hct 33.7 % (35.5-45.6) L 07/28/18 06:03 MCV 93 fl (84-94) 07/28/18 06:03 MCH 31 pg (28-32) 07/28/18 06:03 MCHC 33 % (32-34) 07/28/18 06:03 RDW 13.8 % (13.2-15.2) 07/28/18 06:03 Plt Count 247 K/mm3 (140-440) 07/28/18 06:03 Lymph % (Auto) 16.7 % (13.4-35.0) 07/28/18 06:03 [place] % (Auto) 8.6 % (0.0-7.3) H 07/28/18 06:03 Eos % (Auto) 0.1 % (0.0-4.3) 07/28/18 06:03 Baso % (Auto) 0.1 % (0.0-1.8) 07/28/18 06:03 Lymph # 2.3 K/mm3 (1.2-5.4) 07/28/18 06:03 [place] # 1.2 K/mm3 (0.0-0.8) H 07/28/18 06:03 Eos # 0.0 K/mm3 (0.0-0.4) 07/28/18 06:03 Baso # 0.0 K/mm3 (0.0-0.1) 07/28/18 06:03 Seg Neutrophils % 74.5 % (40.0-70.0) H 07/28/18 06:03 Seg Neutrophils # 10.4 K/mm3 (1.8-7.7) H 07/28/18 06:03 PT 14.4 Sec. (12.2-14.9) 07/27/18 06:35 INR 1.08 (0.87-1.13) 07/27/18 06:35 APTT 29.7 Sec. (24.2-36.6) 07/27/18 06:35 Sodium 141 mmol/L (137-145) 07/28/18 06:03 Potassium 3.8 mmol/L (3.6-5.0) 07/28/18 06:03 Chloride 105.4 mmol/L (98-107) 07/28/18 06:03 Carbon Dioxide 27 mmol/L (22-30) 07/28/18 06:03 Anion Gap 12 mmol/L 07/28/18 06:03 BUN 9 mg/dL (9-20) 07/28/18 06:03 Creatinine 0.7 mg/dL (0.8-1.5) L 07/28/18 06:03 Estimated GFR > 60 ml/min 07/28/18 06:03 BUN/Creatinine Ratio 13 % 07/28/18 06:03 Glucose 122 mg/dL (75-100) H 07/28/18 06:03 POC Glucose 237 (70-105) H 07/27/18 22:15 Calcium 8.0 mg/dL (8.4-10.2) L 07/28/18 06:03 Blood Type AB POSITIVE 07/27/18 06:35 Antibody Screen Negative 07/27/18 06:35 Nutrition/Malnutrition Assess - Dietary Evaluation Nutrition/Malnutrition Findings: Nutrition Notes Start: 07/28/18 12:08 Freq: Status: Active Protocol: Document 07/28/18 12:08 LM (Rec: 07/28/18 12:46 LM [id number]) Co-Sign 07/28/18 12:08 LP Nutrition Notes 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 Offered pt Ensure but pt stated he was diabetic. No Dx of DM in chart. Offered Glucerna to pt. Burn Absent Trauma Absent #1 Nutrition Diagnosis Inadequate oral intake Etiology Chronic illness As Evidenced by Signs and Symptoms 70 lb weight loss in 1.5 years , decreased appetite Is patient on ventilator? No Is Patient Ambulatory and/or Out of Bed No REE-([place]-St. Jeor-confined to bed) 5501.402 Calculation Used for Recommendations [facility] Additional Notes Protein needs: 71-85 g (1-1.2 g/kg) Fluids: 1 mL/kcal Nutrition Intervention Change Diet Order: Continue regular Add Supplement/Snack (indicate name/kcal Glucerna strawberry BID /protein ) Provides kCal: 440 Provides Protein (gm) 20 Goal #1 Meet at least 75% of energy and protein needs Anticipated Discharge Needs: Consistent CHO Follow-Up By: 07/31/18 Additional Comments F/U for PO/ONS intakes
[2018-07-30] MEDS ORDERED: NACL 0.9% 500 ML 500 ML IV ONE (14:00)
--- NOTE | 2018-07-30 14:57 | XRay Report ---
FINAL REPORT EXAM: XR CHEST 1V AP HISTORY: chest pain COMPARISON: Chest CT performed on 02/09/2018 TECHNIQUE: Frontal and lateral views of the chest. FINDINGS: The cardiomediastinal silhouette is normal in appearance. The lungs are clear without focal consolidation. There is no pleural effusion or pneumothorax. There is no acute soft tissue or osseous abnormality. Epidural catheters are seen over the lower thor acic region. IMPRESSION: No acute cardiopulmonary disease.
[2018-07-30] MEDS ORDERED: PROVENTIL IH PRN (16:00)
[2018-07-30 16:47] LABS: Alanine Aminotransferase 6 units/L (7-56); Albumin 2.6 g/dL (3.9-5); BUN/Creatinine Ratio 11; Blood Urea Nitrogen 9 mg/dL (9-20); Calcium 8.2 mg/dL (8.4-10.2); Hemolysis Index 2
--- NOTE | 2018-07-30 18:22 | Cat Scan Report ---
FINAL REPORT EXAM: CT ANGIO CHEST HISTORY: R/o PE TECHNIQUE: Following IV administration of 100 cc of Omnipaque 350 axial helical imaging was performe d through the chest with sagittal and coronal reformatted images obtained. Comparison: Chest CT dated February 09, 2018 FINDINGS: Visualization of fine detail is somewhat limited by motion artifact. The study remains of diagnostic quality. There is bilateral pulmonary emphysema similar in appearance to the previous study. There are small bilateral pleural fluid collections, left greater than right, that are new since the previous study. The trachea and bronchi are patent. The heart appears to be normal size with atherosclerotic vascular calcification of the coronary arter ies. The thoracic aorta is normal caliber. There is no evidence of intrathoracic adenopathy. No filling defects are demonstrated within the pulmonary arteries to suggest the presence of pulmonar y artery emboli. The visualized portion the upper abdomen is notable for evidence of previous cholecystectomy. The bony structures are notable for spondylitic change of the thoracic spine with a neurostimulator p resent in the thoracic canal. IMPRESSION: 1. No evidence of pulmonary artery emboli. 2. Pulmonary emphysema. 3. Small bilateral pleural fluid collections, left greater than right that are new since the previous study and of indeterminate etiology. 4. Atherosclerotic vascular calcification coronary arteries. 5. Status post cholecystectomy. 6. Neurostimulator device in the thoracic canal.
[2018-07-30] MEDS: PRAVACHOL PO SCH (22:11)
[2018-07-30] MEDS: DESYREL PO SCH (22:13)
[2018-07-30] MEDS: NIASPAN ER PO SCH (22:13)
[2018-07-30] MEDS: ZOLOFT PO SCH (22:13)
[2018-07-30] MEDS: MILK OF MAGNESIA PO PRN (22:16)
[2018-07-31] MEDS: BROVANA NEBU IH SCH ×2 (08:00→19:11)
[2018-07-31] MEDS: PULMICORT IH SCH ×2 (08:00→19:11)
[2018-07-31] MEDS: PERCOCET 5/325 PO PRN ×2 (10:37→19:26)
[2018-07-31] MEDS: NEURONTIN PO SCH ×2 (10:39→22:47)
[2018-07-31] MEDS: PROTONIX PO SCH (10:40)
[2018-07-31] MEDS: LIORESAL PO SCH ×2 (10:40→22:47)
[2018-07-31] MEDS: COLACE PO SCH (10:41)
[2018-07-31] MEDS: FEOSOL PO SCH (10:41)
[2018-07-31] MEDS: FLOMAX PO SCH (10:42)
[2018-07-31] MEDS: VITAMIN C PO SCH (10:43)
[2018-07-31] MEDS: FOLVITE PO SCH (10:43)
[2018-07-31] MEDS: TRICOR PO SCH (10:44)
[2018-07-31] MEDS: DITROPAN XL PO SCH (10:44)
[2018-07-31] MEDS: MUCINEX ER PO SCH ×2 (10:45→22:47)
[2018-07-31] MEDS: ASPIRIN PO SCH ×2 (10:45→22:46)
[2018-07-31] MEDS: HABITROL TD SCH (10:48)
[2018-07-31] MEDS: SODIUM CHLORIDE FLUSH SYRINGE 10 ML IV SCH ×2 (10:53→22:00)
--- NOTE | 2018-07-31 15:32 | Progress Note ---
Assessment and Plan Assessment and plan: (1) S/P total hip arthroplasty Followed by Dr Leal PT and OT to continue Pain management (2) CAD (coronary artery disease) - Continue aspirin (3) BPH (benign prostatic hyperplasia) Continue Flomax (4) GERD (gastroesophageal reflux disease) - contineu pantoprazole (5) Hyperlipidemia Continue fenofibrate and statins (6) Hypertension Continue antihypertensives (7) COPD (chronic obstructive pulmonary disease) Continue Symbicort and DuoNeb (8) DVT prophylaxis SCDs and GI prophylaxis (9) Discharge planning issues As per History Interval history: I have seen and evaluated the patient at the bedside, patient's pain is controlled. Chest pain and SOB resolved. Hospitalist Physical - Physical exam Narrative exam: Not in cardiopulmonary distress. The patient appeared well nourished and normally developed. Vital signs as documented. Head exam is unremarkable. No scleral icterus . Neck is without jugular venous distension, thyromegaly, or carotid bruits. Lungs are clear to auscultation. Cardiac exam reveals regular rate and Rhythm. First and second heart sounds normal. No murmurs, rubs or gallops. Abdominal exam reveals normal bowel sounds, no masses, no organomegaly and no aortic enlargement. Extremities status post left hip replacement. 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 No focal weakness. - Constitutional Vitals: Temp Pulse Resp BP Pulse Ox 98.4 F 61 18 102/55 97 07/31/18 11:45 07/31/18 11:46 07/31/18 11:45 07/31/18 11:45 07/31/18 11:46 General appearance: Present: no acute distress, well-nourished Results - Labs CBC & Chem 7: 07/28/18 06:03 07/30/18 15:20 Labs: Laboratory Last Values WBC 14.0 K/mm3 (4.5-11.0) H 07/28/18 06:03 RBC 3.61 M/mm3 (3.65-5.03) L 07/28/18 06:03 Hgb 11.3 gm/dl (11.8-15.2) L 07/28/18 06:03 Hct 33.7 % (35.5-45.6) L 07/28/18 06:03 MCV 93 fl (84-94) 07/28/18 06:03 MCH 31 pg (28-32) 07/28/18 06:03 MCHC 33 % (32-34) 07/28/18 06:03 RDW 13.8 % (13.2-15.2) 07/28/18 06:03 Plt Count 247 K/mm3 (140-440) 07/28/18 06:03 Lymph % (Auto) 16.7 % (13.4-35.0) 07/28/18 06:03 [place] % (Auto) 8.6 % (0.0-7.3) H 07/28/18 06:03 Eos % (Auto) 0.1 % (0.0-4.3) 07/28/18 06:03 Baso % (Auto) 0.1 % (0.0-1.8) 07/28/18 06:03 Lymph # 2.3 K/mm3 (1.2-5.4) 07/28/18 06:03 [place] # 1.2 K/mm3 (0.0-0.8) H 07/28/18 06:03 Eos # 0.0 K/mm3 (0.0-0.4) 07/28/18 06:03 Baso # 0.0 K/mm3 (0.0-0.1) 07/28/18 06:03 Seg Neutrophils % 74.5 % (40.0-70.0) H 07/28/18 06:03 Seg Neutrophils # 10.4 K/mm3 (1.8-7.7) H 07/28/18 06:03 PT 14.4 Sec. (12.2-14.9) 07/27/18 06:35 INR 1.08 (0.87-1.13) 07/27/18 06:35 APTT 29.7 Sec. (24.2-36.6) 07/27/18 06:35 Sodium 141 mmol/L (137-145) 07/30/18 15:20 Potassium 3.7 mmol/L (3.6-5.0) 07/30/18 15:20 Chloride 105.0 mmol/L (98-107) 07/30/18 15:20 Carbon Dioxide 27 mmol/L (22-30) 07/30/18 15:20 Anion Gap 13 mmol/L 07/30/18 15:20 BUN 9 mg/dL (9-20) 07/30/18 15:20 Creatinine 0.8 mg/dL (0.8-1.5) 07/30/18 15:20 Estimated GFR > 60 ml/min 07/30/18 15:20 BUN/Creatinine Ratio 11 % 07/30/18 15:20 Glucose 116 mg/dL (75-100) H 07/30/18 15:20 POC Glucose 237 (70-105) H 07/27/18 22:15 Calcium 8.2 mg/dL (8.4-10.2) L 07/30/18 15:20 Total Bilirubin 0.30 mg/dL (0.1-1.2) 07/30/18 15:20 AST 9 units/L (5-40) 07/30/18 15:20 ALT 6 units/L (7-56) L 07/30/18 15:20 Alkaline Phosphatase 57 units/L (35-129) 07/30/18 15:20 Troponin T < 0.010 ng/mL (0.00-0.029) 07/30/18 15:20 Total Protein 5.4 g/dL (6.3-8.2) L 07/30/18 15:20 Albumin 2.6 g/dL (3.9-5) L 07/30/18 15:20 Albumin/Globulin Ratio 0.9 % 07/30/18 15:20 Blood Type AB POSITIVE 07/27/18 06:35 Antibody Screen Negative 07/27/18 06:35 Nutrition/Malnutrition Assess - Dietary Evaluation Nutrition/Malnutrition Findings: Nutrition Notes Start: 07/28/18 12:08 Freq: Status: Active Protocol: Document 07/28/18 12:08 LM (Rec: 07/28/18 12:46 LM [id number]) Co-Sign 07/28/18 12:08 LP Nutrition Notes Need for 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 Offered pt Ensure but pt stated he was diabetic. No Dx of DM in chart. Offered Glucerna to pt. Burn Absent Trauma Absent #1 Nutrition Diagnosis Inadequate oral intake Etiology Chronic illness As Evidenced by Signs and Symptoms 70 lb weight loss in 1.5 years , decreased appetite Is patient on ventilator? No Is Patient Ambulatory and/or Out of Bed No REE-([facility]-confined to bed) [phone] Calculation Used for Recommendations [facility] Additional Notes Protein needs: 71-85 g (1-1.2 g/kg) Fluids: 1 mL/kcal Nutrition Intervention Change Diet Order: Continue regular Add Supplement/Snack (indicate name/kcal Glucerna strawberry BID /protein ) Provides kCal: 440 Provides Protein (gm) 20 Goal #1 Meet at least 75% of energy and protein needs Anticipated Discharge Needs: Consistent CHO Follow-Up By: 07/31/18 Additional Comments F/U for PO/ONS intakes
[2018-07-31] MEDS: DESYREL PO SCH (22:46)
[2018-07-31] MEDS: PRAVACHOL PO SCH (22:48)
[2018-07-31] MEDS: ZOLOFT PO SCH (22:52)
[2018-07-31] MEDS: NIASPAN ER PO SCH (23:55)
[2018-08-01] MEDS: SODIUM CHLORIDE FLUSH SYRINGE 10 ML IV SCH ×3 (04:43→22:08)
[2018-08-01] MEDS: BROVANA NEBU IH SCH ×2 (08:22→19:26)
[2018-08-01] MEDS: PULMICORT IH SCH ×2 (08:22→19:26)
[2018-08-01] MEDS: PERCOCET 5/325 PO PRN ×2 (08:34→18:45)
[2018-08-01] MEDS: FEOSOL PO SCH (10:19)
[2018-08-01] MEDS: MUCINEX ER PO SCH ×2 (10:19→21:47)
[2018-08-01] MEDS: FOLVITE PO SCH (10:19)
[2018-08-01] MEDS: LIORESAL PO SCH ×2 (10:19→21:46)
[2018-08-01] MEDS: TRICOR PO SCH (10:19)
[2018-08-01] MEDS: ASPIRIN PO SCH ×2 (10:19→21:46)
[2018-08-01] MEDS: VITAMIN C PO SCH (10:20)
[2018-08-01] MEDS: FLOMAX PO SCH (10:20)
[2018-08-01] MEDS: PROTONIX PO SCH (10:21)
[2018-08-01] MEDS: NEURONTIN PO SCH ×2 (10:21→21:43)
[2018-08-01] MEDS: DITROPAN XL PO SCH (10:22)
[2018-08-01] MEDS: HABITROL TD SCH (10:22)
[2018-08-01] MEDS: MILK OF MAGNESIA PO PRN (10:27)
--- NOTE | 2018-08-01 12:24 | Progress Note ---
Assessment and Plan Assessment and plan: 58-year-old man with history of AVN of both hips. Admit to the hospital status post left ROXIE Problems OA of left hip Status post left hip arthroplasty 07/29/18 Left lower extremity edema CAD BPH GERD Hyperlipidemia Hypertension Chronic COPD Moderate to severe malnutrition Plan sp ROXIE on left on 07/29/18 Continue PT, OT consults per patient request Obtain lower extremity Dopplers to rule out DVT, completed in the left lower extremity edema Dietitian consult, encouraged to eat a balanced diet Continue medications for chronic conditions Awaiting placement in IRU, patient has a bed awaiting insurance approval, patient has [employer] insurance, his is an employee here History Interval history: Review of systems Constitutional: No fevers, no malaise, no joint pains CVS: No chest pain, no orthopnea, no dyspnea on exertion, c/o left pedal edema GI: No abdominal pain, no diarrhea, no vomiting, no constipation Respiratory: No shortness of breath, no wheezing, no coughing Hospitalist Physical - Physical exam Narrative exam: General.: Appears well, no distress, nontoxic HEENT: Moist mucous membranes, extraocular muscles intact, no lymphadenopathy Neck: supple Cardiac: S1-S2 heard Lungs: clear to auscultation bilaterally Abdomen: soft , nontender, nondistended, bowel sounds positive Extremities: LLE edema Skin: no rash or lesions Neurologic: no gross focal deficits Psych: calm, and cooperative - Constitutional Vitals: Temp Pulse Resp BP Pulse Ox 98.1 F 62 14 94/43 96 08/01/18 12:10 08/01/18 12:10 08/01/18 12:10 08/01/18 12:10 08/01/18 12:10 General appearance: Present: no acute distress, well-nourished Results - Labs CBC & Chem 7: 07/28/18 06:03 07/30/18 15:20 Labs: Laboratory Last Values WBC 14.0 K/mm3 (4.5-11.0) H 07/28/18 06:03 RBC 3.61 M/mm3 (3.65-5.03) L 07/28/18 06:03 Hgb 11.3 gm/dl (11.8-15.2) L 07/28/18 06:03 Hct 33.7 % (35.5-45.6) L 07/28/18 06:03 MCV 93 fl (84-94) 07/28/18 06:03 MCH 31 pg (28-32) 07/28/18 06:03 MCHC 33 % (32-34) 07/28/18 06:03 RDW 13.8 % (13.2-15.2) 07/28/18 06:03 Plt Count 247 K/mm3 (140-440) 07/28/18 06:03 Lymph % (Auto) 16.7 % (13.4-35.0) 07/28/18 06:03 [place] % (Auto) 8.6 % (0.0-7.3) H 07/28/18 06:03 Eos % (Auto) 0.1 % (0.0-4.3) 07/28/18 06:03 Baso % (Auto) 0.1 % (0.0-1.8) 07/28/18 06:03 Lymph # 2.3 K/mm3 (1.2-5.4) 07/28/18 06:03 [place] # 1.2 K/mm3 (0.0-0.8) H 07/28/18 06:03 Eos # 0.0 K/mm3 (0.0-0.4) 07/28/18 06:03 Baso # 0.0 K/mm3 (0.0-0.1) 07/28/18 06:03 Seg Neutrophils % 74.5 % (40.0-70.0) H 07/28/18 06:03 Seg Neutrophils # 10.4 K/mm3 (1.8-7.7) H 07/28/18 06:03 PT 14.4 Sec. (12.2-14.9) 07/27/18 06:35 INR 1.08 (0.87-1.13) 07/27/18 06:35 APTT 29.7 Sec. (24.2-36.6) 07/27/18 06:35 Sodium 141 mmol/L (137-145) 07/30/18 15:20 Potassium 3.7 mmol/L (3.6-5.0) 07/30/18 15:20 Chloride 105.0 mmol/L (98-107) 07/30/18 15:20 Carbon Dioxide 27 mmol/L (22-30) 07/30/18 15:20 Anion Gap 13 mmol/L 07/30/18 15:20 BUN 9 mg/dL (9-20) 07/30/18 15:20 Creatinine 0.8 mg/dL (0.8-1.5) 07/30/18 15:20 Estimated GFR > 60 ml/min 07/30/18 15:20 BUN/Creatinine Ratio 11 % 07/30/18 15:20 Glucose 116 mg/dL (75-100) H 07/30/18 15:20 POC Glucose 237 (70-105) H 07/27/18 22:15 Calcium 8.2 mg/dL (8.4-10.2) L 07/30/18 15:20 Total Bilirubin 0.30 mg/dL (0.1-1.2) 07/30/18 15:20 AST 9 units/L (5-40) 07/30/18 15:20 ALT 6 units/L (7-56) L 07/30/18 15:20 Alkaline Phosphatase 57 units/L (35-129) 07/30/18 15:20 Troponin T < 0.010 ng/mL (0.00-0.029) 07/30/18 15:20 Total Protein 5.4 g/dL (6.3-8.2) L 07/30/18 15:20 Albumin 2.6 g/dL (3.9-5) L 07/30/18 15:20 Albumin/Globulin Ratio 0.9 % 07/30/18 15:20 Blood Type AB POSITIVE 07/27/18 06:35 Antibody Screen Negative 07/27/18 06:35 Nutrition/Malnutrition Assess - Dietary Evaluation Nutrition/Malnutrition Findings: Nutrition Notes Start: 07/28/18 12:08 Freq: Status: Active Protocol: Document 07/31/18 17:17 RM (Rec: 07/31/18 17:22 RM [id number]) Nutrition Notes Initial or Follow up Reassessment Current Diagnosis COPD Diabetes Hypertension Hyperlipidemia Other Pertinent Diagnosis S/P L hip replacement, peripheral neuropathy, BPH Current Diet Regular diet Labs/Tests Reviewed Pertinent Medications Reviewed Height 5 ft 10 in Weight 71.21 kg [place] Body Weight (lbs) 166.0 BMI 22.5 Subjective/Other Information Pt stated that pt appetite is good and that he eats 90% of his meals. Noted two half drunk and one full Glucerna at bedside. Pt stated that he saves them for snacks in between meals. Percent of energy/protein needs met: 100%/100% Burn Absent Trauma Absent #1 Nutrition Diagnosis Inadequate oral intake As Evidenced by Signs and Symptoms pt meeting 100% of calorie and protein needs Diagnosis Progress(for reassessment Resolved documentation) Is patient on ventilator? No Is Patient Ambulatory and/or Out of Bed No REE-([facility]-confined to bed) 6710.056 Calculation Used for Recommendations [facility] Additional Notes Protein needs: 71-85 g (1-1.2 g/kg) Fluids: 1 mL/kcal Nutrition Intervention Change Diet Order: Consistent Carb Add Supplement/Snack (indicate name/kcal Glucerna strawberry 1 daily /protein ) Provides kCal: 220 Provides Protein (gm) 10 Goal #1 Continue to meet at least 75% of energy and protein needs Anticipated Discharge Needs: Consistent CHO Follow-Up By: 08/07/18 Additional Comments Follow for PO and ONS intakes
[2018-08-01] MEDS: PRAVACHOL PO SCH (21:43)
[2018-08-01] MEDS: ZOLOFT PO SCH (21:46)
[2018-08-01] MEDS: DESYREL PO SCH (21:46)
[2018-08-01] MEDS: NIASPAN ER PO SCH (23:00)
[2018-08-02] MEDS: PERCOCET 5/325 PO PRN ×2 (06:42→20:43)
[2018-08-02] MEDS: PULMICORT IH SCH ×2 (08:19→21:22)
[2018-08-02] MEDS: BROVANA NEBU IH SCH ×2 (08:19→21:22)
--- NOTE | 2018-08-02 09:38 | Progress Note ---
Assessment and Plan Assessment and plan: 58-year-old man with history of AVN of both hips. Admit to the hospital status post left ROXIE Problems OA of left hip Status post left hip arthroplasty 07/29/18 Left lower extremity edema CAD BPH GERD Hyperlipidemia Hypertension Chronic COPD Moderate to severe malnutrition Plan sp ROXIE on left on 07/29/18 Continue PT, OT consults per patient request Obtain lower extremity Dopplers to rule out DVT, completed in the left lower extremity edema Dietitian consult, encouraged to eat a balanced diet Continue medications for chronic conditions Awaiting placement in IRU, patient has a bed awaiting insurance approval, patient has [employer] insurance, his is an employee here History Interval history: Review of systems Constitutional: No fevers, no malaise, no joint pains CVS: No chest pain, no orthopnea, no dyspnea on exertion, c/o left pedal edema GI: No abdominal pain, no diarrhea, no vomiting, no constipation Respiratory: No shortness of breath, no wheezing, no coughing Hospitalist Physical - Physical exam Narrative exam: General.: Appears well, no distress, nontoxic HEENT: Moist mucous membranes, extraocular muscles intact, no lymphadenopathy Neck: supple Cardiac: S1-S2 heard Lungs: clear to auscultation bilaterally Abdomen: soft , nontender, nondistended, bowel sounds positive Extremities: LLE edema Skin: no rash or lesions Neurologic: no gross focal deficits Psych: calm, and cooperative - Constitutional Vitals: Temp Pulse Resp BP Pulse Ox 98.3 F 67 20 101/54 96 08/02/18 07:00 08/02/18 08:37 08/02/18 08:37 08/02/18 07:00 08/02/18 08:24 General appearance: Present: no acute distress, well-nourished Results - Labs CBC & Chem 7: 07/28/18 06:03 07/30/18 15:20 Labs: Laboratory Last Values WBC 14.0 K/mm3 (4.5-11.0) H 07/28/18 06:03 RBC 3.61 M/mm3 (3.65-5.03) L 07/28/18 06:03 Hgb 11.3 gm/dl (11.8-15.2) L 07/28/18 06:03 Hct 33.7 % (35.5-45.6) L 07/28/18 06:03 MCV 93 fl (84-94) 07/28/18 06:03 MCH 31 pg (28-32) 07/28/18 06:03 MCHC 33 % (32-34) 07/28/18 06:03 RDW 13.8 % (13.2-15.2) 07/28/18 06:03 Plt Count 247 K/mm3 (140-440) 07/28/18 06:03 Lymph % (Auto) 16.7 % (13.4-35.0) 07/28/18 06:03 [place] % (Auto) 8.6 % (0.0-7.3) H 07/28/18 06:03 Eos % (Auto) 0.1 % (0.0-4.3) 07/28/18 06:03 Baso % (Auto) 0.1 % (0.0-1.8) 07/28/18 06:03 Lymph # 2.3 K/mm3 (1.2-5.4) 07/28/18 06:03 [place] # 1.2 K/mm3 (0.0-0.8) H 07/28/18 06:03 Eos # 0.0 K/mm3 (0.0-0.4) 07/28/18 06:03 Baso # 0.0 K/mm3 (0.0-0.1) 07/28/18 06:03 Seg Neutrophils % 74.5 % (40.0-70.0) H 07/28/18 06:03 Seg Neutrophils # 10.4 K/mm3 (1.8-7.7) H 07/28/18 06:03 PT 14.4 Sec. (12.2-14.9) 07/27/18 06:35 INR 1.08 (0.87-1.13) 07/27/18 06:35 APTT 29.7 Sec. (24.2-36.6) 07/27/18 06:35 Sodium 141 mmol/L (137-145) 07/30/18 15:20 Potassium 3.7 mmol/L (3.6-5.0) 07/30/18 15:20 Chloride 105.0 mmol/L (98-107) 07/30/18 15:20 Carbon Dioxide 27 mmol/L (22-30) 07/30/18 15:20 Anion Gap 13 mmol/L 07/30/18 15:20 BUN 9 mg/dL (9-20) 07/30/18 15:20 Creatinine 0.8 mg/dL (0.8-1.5) 07/30/18 15:20 Estimated GFR > 60 ml/min 07/30/18 15:20 BUN/Creatinine Ratio 11 % 07/30/18 15:20 Glucose 116 mg/dL (75-100) H 07/30/18 15:20 POC Glucose 237 (70-105) H 07/27/18 22:15 Calcium 8.2 mg/dL (8.4-10.2) L 07/30/18 15:20 Total Bilirubin 0.30 mg/dL (0.1-1.2) 07/30/18 15:20 AST 9 units/L (5-40) 07/30/18 15:20 ALT 6 units/L (7-56) L 07/30/18 15:20 Alkaline Phosphatase 57 units/L (35-129) 07/30/18 15:20 Troponin T < 0.010 ng/mL (0.00-0.029) 07/30/18 15:20 Total Protein 5.4 g/dL (6.3-8.2) L 07/30/18 15:20 Albumin 2.6 g/dL (3.9-5) L 07/30/18 15:20 Albumin/Globulin Ratio 0.9 % 07/30/18 15:20 Blood Type AB POSITIVE 07/27/18 06:35 Antibody Screen Negative 07/27/18 06:35 Nutrition/Malnutrition Assess - Dietary Evaluation Nutrition/Malnutrition Findings: Nutrition Notes Start: 07/28/18 12:08 Freq: Status: Active Protocol: Document 07/31/18 17:17 RM (Rec: 07/31/18 17:22 RM [id number]) Nutrition Notes Initial or Follow up Reassessment Current Diagnosis COPD Diabetes Hypertension Hyperlipidemia Other Pertinent Diagnosis S/P L hip replacement, peripheral neuropathy, BPH Current Diet Regular diet Labs/Tests Reviewed Pertinent Medications Reviewed Height 5 ft 10 in Weight 71.21 kg [place] Body Weight (lbs) 166.0 BMI 22.5 Subjective/Other Information Pt stated that pt appetite is good and that he eats 90% of his meals. Noted two half drunk and one full Glucerna at bedside. Pt stated that he saves them for snacks in between meals. Percent of energy/protein needs met: 100%/100% Burn Absent Trauma Absent #1 Nutrition Diagnosis Inadequate oral intake As Evidenced by Signs and Symptoms pt meeting 100% of calorie and protein needs Diagnosis Progress(for reassessment Resolved documentation) Is patient on ventilator? No Is Patient Ambulatory and/or Out of Bed No REE-([facility]-confined to bed) [phone] Calculation Used for Recommendations [facility] Additional Notes Protein needs: 71-85 g (1-1.2 g/kg) Fluids: 1 mL/kcal Nutrition Intervention Change Diet Order: Consistent Carb Add Supplement/Snack (indicate name/kcal Glucerna strawberry 1 daily /protein ) Provides kCal: 220 Provides Protein (gm) 10 Goal #1 Continue to meet at least 75% of energy and protein needs Anticipated Discharge Needs: Consistent CHO Follow-Up By: 08/07/18 Additional Comments Follow for PO and ONS intakes
[2018-08-02] MEDS: MUCINEX ER PO SCH ×2 (10:03→21:33)
[2018-08-02] MEDS: LIORESAL PO SCH ×2 (10:03→21:28)
[2018-08-02] MEDS: COLACE PO SCH (10:03)
[2018-08-02] MEDS: FOLVITE PO SCH (10:03)
[2018-08-02] MEDS: FLOMAX PO SCH (10:04)
[2018-08-02] MEDS: DITROPAN XL PO SCH (10:04)
[2018-08-02] MEDS: NEURONTIN PO SCH ×2 (10:04→21:29)
[2018-08-02] MEDS: FEOSOL PO SCH (10:05)
[2018-08-02] MEDS: TRICOR PO SCH (10:05)
[2018-08-02] MEDS: PROTONIX PO SCH (10:05)
[2018-08-02] MEDS: ASPIRIN PO SCH ×2 (10:05→21:28)
[2018-08-02] MEDS: VITAMIN C PO SCH (10:06)
[2018-08-02] MEDS: HABITROL TD SCH (10:07)
--- NOTE | 2018-08-02 11:16 | Vascular Lab Report ---
FINAL REPORT EXAM: VL VENOUS DUPLEX LE BILAT HISTORY: LE edema TECHNIQUE: Grayscale and color and spectral Doppler ultrasound imaging of the bilateral lower extrem ities was performed for the purposes of assessing for deep venous thrombosis. PRIORS: None. FINDINGS: No evidence of deep venous thrombosis is seen within the common femoral through the posterior tibial and peroneal veins. Normal compression and color flow is seen throughout the venous system of the johann ateral lower extremities. Normal augmentation was seen. IMPRESSION: Negative for bilateral lower extremity deep venous thrombosis.
[2018-08-02] MEDS ORDERED: DULCOLAX PR PRN (13:54)
[2018-08-02] MEDS ORDERED: GLYCERIN ADULT 2 GM PR PRN (13:54)
[2018-08-02] MEDS ORDERED: CITRATE OF MAGNESIA PO PRN (13:54)
[2018-08-02] MEDS: SODIUM CHLORIDE FLUSH SYRINGE 10 ML IV SCH ×2 (20:45→21:34)
[2018-08-02] MEDS: PRAVACHOL PO SCH (21:28)
[2018-08-02] MEDS: ZOLOFT PO SCH (21:29)
[2018-08-02] MEDS: DESYREL PO SCH (21:33)
[2018-08-02] MEDS: NIASPAN ER PO SCH (21:33)
[2018-08-03 05:01] VITALS: BP 102/46
[2018-08-03] MEDS: PULMICORT IH SCH (07:50)
[2018-08-03] MEDS: BROVANA NEBU IH SCH (07:50)
[2018-08-03] MEDS: PERCOCET 5/325 PO PRN (09:22)
[2018-08-03] MEDS ORDERED: BUPRENORPHINE TD SCH (10:00)
[2018-08-03] MEDS: NEURONTIN PO SCH (10:40)
[2018-08-03] MEDS: HABITROL TD SCH (10:40)
[2018-08-03] MEDS: FOLVITE PO SCH (10:41)
[2018-08-03] MEDS: LIORESAL PO SCH (10:41)
[2018-08-03] MEDS: PROTONIX PO SCH (10:41)
[2018-08-03] MEDS: COLACE PO SCH (10:41)
[2018-08-03] MEDS: FLOMAX PO SCH (10:41)
[2018-08-03] MEDS: ASPIRIN PO SCH (10:41)
[2018-08-03] MEDS: FEOSOL PO SCH (10:41)
[2018-08-03] MEDS: VITAMIN C PO SCH (10:42)
[2018-08-03] MEDS: TRICOR PO SCH (10:42)
[2018-08-03] MEDS: MUCINEX ER PO SCH (10:42)
[2018-08-03] MEDS: DITROPAN XL PO SCH (10:42)
--- NOTE | 2018-08-03 11:28 | Progress Note ---
Assessment and Plan Assessment and plan: 58-year-old man with history of AVN of both hips. Admit to the hospital status post left ROXIE Problems OA of left hip Status post left hip arthroplasty 07/29/18 Left lower extremity edema CAD BPH GERD Hyperlipidemia Hypertension Chronic COPD Moderate to severe malnutrition Plan sp ROXIE on left on 07/29/18 Continue PT, OT consults per patient request Obtain lower extremity Dopplers to rule out DVT, completed in the left lower extremity edema Dietitian consult, encouraged to eat a balanced diet Continue medications for chronic conditions Awaiting placement in IRU, patient has a bed awaiting insurance approval, patient has [employer] insurance, his is an employee here Hospitalist Physical - Constitutional Vitals: Temp Pulse Resp BP Pulse Ox 97.1 F L 70 20 102/46 97 08/03/18 04:59 08/03/18 08:00 08/03/18 08:00 08/03/18 04:59 08/03/18 07:50 General appearance: Present: no acute distress, well-nourished Results - Labs CBC & Chem 7: 07/28/18 06:03 07/30/18 15:20 Labs: Laboratory Last Values WBC 14.0 K/mm3 (4.5-11.0) H 07/28/18 06:03 RBC 3.61 M/mm3 (3.65-5.03) L 07/28/18 06:03 Hgb 11.3 gm/dl (11.8-15.2) L 07/28/18 06:03 Hct 33.7 % (35.5-45.6) L 07/28/18 06:03 MCV 93 fl (84-94) 07/28/18 06:03 MCH 31 pg (28-32) 07/28/18 06:03 MCHC 33 % (32-34) 07/28/18 06:03 RDW 13.8 % (13.2-15.2) 07/28/18 06:03 Plt Count 247 K/mm3 (140-440) 07/28/18 06:03 Lymph % (Auto) 16.7 % (13.4-35.0) 07/28/18 06:03 [place] % (Auto) 8.6 % (0.0-7.3) H 07/28/18 06:03 Eos % (Auto) 0.1 % (0.0-4.3) 07/28/18 06:03 Baso % (Auto) 0.1 % (0.0-1.8) 07/28/18 06:03 Lymph # 2.3 K/mm3 (1.2-5.4) 07/28/18 06:03 [place] # 1.2 K/mm3 (0.0-0.8) H 07/28/18 06:03 Eos # 0.0 K/mm3 (0.0-0.4) 07/28/18 06:03 Baso # 0.0 K/mm3 (0.0-0.1) 07/28/18 06:03 Seg Neutrophils % 74.5 % (40.0-70.0) H 07/28/18 06:03 Seg Neutrophils # 10.4 K/mm3 (1.8-7.7) H 07/28/18 06:03 PT 14.4 Sec. (12.2-14.9) 07/27/18 06:35 INR 1.08 (0.87-1.13) 07/27/18 06:35 APTT 29.7 Sec. (24.2-36.6) 07/27/18 06:35 Sodium 141 mmol/L (137-145) 07/30/18 15:20 Potassium 3.7 mmol/L (3.6-5.0) 07/30/18 15:20 Chloride 105.0 mmol/L (98-107) 07/30/18 15:20 Carbon Dioxide 27 mmol/L (22-30) 07/30/18 15:20 Anion Gap 13 mmol/L 07/30/18 15:20 BUN 9 mg/dL (9-20) 07/30/18 15:20 Creatinine 0.8 mg/dL (0.8-1.5) 07/30/18 15:20 Estimated GFR > 60 ml/min 07/30/18 15:20 BUN/Creatinine Ratio 11 % 07/30/18 15:20 Glucose 116 mg/dL (75-100) H 07/30/18 15:20 POC Glucose 237 (70-105) H 07/27/18 22:15 Calcium 8.2 mg/dL (8.4-10.2) L 07/30/18 15:20 Total Bilirubin 0.30 mg/dL (0.1-1.2) 07/30/18 15:20 AST 9 units/L (5-40) 07/30/18 15:20 ALT 6 units/L (7-56) L 07/30/18 15:20 Alkaline Phosphatase 57 units/L (35-129) 07/30/18 15:20 Troponin T < 0.010 ng/mL (0.00-0.029) 07/30/18 15:20 Total Protein 5.4 g/dL (6.3-8.2) L 07/30/18 15:20 Albumin 2.6 g/dL (3.9-5) L 07/30/18 15:20 Albumin/Globulin Ratio 0.9 % 07/30/18 15:20 Blood Type AB POSITIVE 07/27/18 06:35 Antibody Screen Negative 07/27/18 06:35 Nutrition/Malnutrition Assess - Dietary Evaluation Nutrition/Malnutrition Findings: Nutrition Notes Start: 07/28/18 12:08 Freq: Status: Active Protocol: Document 07/31/18 17:17 RM (Rec: 07/31/18 17:22 [id number]) Nutrition Notes Initial or Follow up Reassessment Current Diagnosis COPD Diabetes Hypertension Hyperlipidemia Other Pertinent Diagnosis S/P L hip replacement, peripheral neuropathy, BPH Current Diet Regular diet Labs/Tests Reviewed Pertinent Medications Reviewed Height 5 ft 10 in Weight 71.21 kg [place] Body Weight (lbs) 166.0 BMI 22.5 Subjective/Other Information Pt stated that pt appetite is good and that he eats 90% of his meals. Noted two half drunk and one full Glucerna at bedside. Pt stated that he saves them for snacks in between meals. Percent of energy/protein needs met: 100%/100% Burn Absent Trauma Absent #1 Nutrition Diagnosis Inadequate oral intake As Evidenced by Signs and Symptoms pt meeting 100% of calorie and protein needs Diagnosis Progress(for reassessment Resolved documentation) Is patient on ventilator? No Is Patient Ambulatory and/or Out of Bed No [facility].034 Calculation Used for Recommendations [facility] Additional Notes Protein needs: 71-85 g (1-1.2 g/kg) Fluids: 1 mL/kcal Nutrition Intervention Change Diet Order: Consistent Carb Add Supplement/Snack (indicate name/kcal Glucerna strawberry 1 daily /protein ) Provides kCal: 220 Provides Protein (gm) 10 Goal #1 Continue to meet at least 75% of energy and protein needs Anticipated Discharge Needs: Consistent CHO Follow-Up By: 08/07/18 Additional Comments Follow for PO and ONS intakes
[2018-08-03] MEDS ORDERED: PULMICORT IH SCH (16:05)
--- NOTE | 2018-08-03 16:12 | Discharge Summary ---
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 Consult to Physician [CONS] Routine Comment: CONSULT COMPLETED Consulting Provider: ANTONIETA JEWELL Physician Instructions: Reason For Exam: postop medical management and pain managemernt 07/27/18 11:45 Physical Therapy Evaluation and Treat [CONS] Routine Comment: POSTERIOR HIP PRECAUTIONS Reason For Exam: postop TOTAL HIP 07/31/18 08:35 Consult to Dietitian/Nutrition [CONS] Routine Physician Instructions: Reason For Exam: Reason for Consult: Malnutrition 08/01/18 17:12 Occupational Therapy Evaluate and Treat [CONS] Routine Comment: Reason For Exam: deficit, unable to pick things up with hands Primary care physician: INDER ARRINGTON MD Hospitalization Hospital course: 58-year-old man with history of AVN of both hips. Admit to the hospital status post left ROXIE, he received Pain meds and physical therapy after surgery. He was planned for placement in acute rehabilitation, however he was not able to get his insurance to approve it. While awaiting insurance approval, the patient actually improved and was ambulating well with his devices. Home device and equipment ordered for him, and he was discharged home with home health. -he had complained of left lower extremity swelling which was dependence, he had an ultrasound that was negative for DVT. He was encouraged to eat a balanced diets given malnutrition, and he also received dietitian consult. -He was also counseled on nicotine cessation, he was given nicotine patches Problems OA of left hip Status post left hip arthroplasty 07/29/18 Left lower extremity edema CAD BPH GERD Hyperlipidemia Hypertension Chronic COPD Moderate to severe malnutrition nicotine abuse Disposition: DC/TX-06 HOME UNDER HOME HLTH Time spent for discharge: 33 mins Core Measure Documentation - Palliative Care Palliative Care/ Comfort Measures: Not Applicable - Core Measures Any of the following diagnoses?: none Exam - Constitutional Vitals: Temp Pulse Resp BP Pulse Ox 97.1 F L 70 20 102/46 97 08/03/18 04:59 08/03/18 08:00 08/03/18 08:00 08/03/18 04:59 08/03/18 07:50 General appearance: Present: no acute distress, well-nourished - EENT Eyes: Present: PERRL ENT: hearing intact, clear oral mucosa - Neck Neck: Present: supple, normal ROM - Respiratory Respiratory effort: normal Respiratory: bilateral: CTA - Cardiovascular Heart Sounds: Present: S1 & S2. Absent: rub, click - Extremities Extremities: pulses symmetrical, No edema Peripheral Pulses: within normal limits - Abdominal General gastrointestinal: Present: soft, non-tender, non-distended, normal bowel sounds Male genitourinary: Present: normal - Integumentary Integumentary: Present: clear, warm, dry - Musculoskeletal Musculoskeletal: gait normal, strength equal bilaterally - Psychiatric Psychiatric: appropriate mood/affect, intact judgment & insight - Neurologic Neurologic: CNII-XII intact, moves all extremities Plan Follow up with: INDER ARRINGTON MD [Primary Care Provider] - 7 Days Prescriptions: Nicotine [Habitrol] 21 mg TD QDAY #30 patch oxyCODONE /ACETAMINOPHEN [Percocet 5/325 mg] 2 tab PO Q6H PRN #30 tablet PRN Reason: Pain, Moderate (4-6)
== END 2018-08-03 19:54 | disposition home health service (06) | DRG 469 ==
LOC: 3A 06:07 → 3B-SURG 13:26
PROVIDERS: ADMIT Orthopaedic Surgery; ATTEND Orthopaedic Surgery
PROC: 0SRB0JZ Replacement of Left Hip Joint with Synthetic Substitute, Open Approach (ICD-10-PCS; principal; 2018-07-27)
PROC: 5A09357 Assistance with Respiratory Ventilation, Less than 24 Consecutive Hours, Continuous Positive Airway Pressure (ICD-10-PCS; 2018-07-27)
DX: M16.12 Unilateral primary osteoarthritis, left hip (principal); E43 Unspecified severe protein-calorie malnutrition; M87.9 Osteonecrosis, unspecified; G47.30 Sleep apnea, unspecified; I25.10 Atherosclerotic heart disease of native coronary artery without angina pectoris; N40.0 Benign prostatic hyperplasia without lower urinary tract symptoms; I10 Essential (primary) hypertension; F17.200 Nicotine dependence, unspecified, uncomplicated; J44.9 Chronic obstructive pulmonary disease, unspecified; G62.9 Polyneuropathy, unspecified; E78.2 Mixed hyperlipidemia; F32.9 Major depressive disorder, single episode, unspecified; G89.29 Other chronic pain; K21.9 Gastro-esophageal reflux disease without esophagitis; Z96.642 Presence of left artificial hip joint; Z71.6 Tobacco abuse counseling; Z98.61 Coronary angioplasty status; Z90.5 Acquired absence of kidney; Z72.89 Other problems related to lifestyle; Z68.22 Body mass index [BMI] 22.0-22.9, adult; I25.2 Old myocardial infarction; Z82.49 Family history of ischemic heart disease and other diseases of the circulatory system; Z79.82 Long term (current) use of aspirin; Z79.899 Other long term (current) drug therapy
CPT/HCPCS: 36415; 71045; 71275; 72170; 80048; 80053; 82962; 84484; 85025; 85610; 85730; 86850; 86900; 86901; 87116; 88304; 88311; 93005; 93010; 93970; 94640; 94660; 94760; 99406; G0378; A4217; A9270-GY; C1776; J0690; J1100; J1885; J2250; J2270; J2370; J2405; J2704; J2710; J3010; J7030; J7040; J7050; J7120; Q9967

== ENCOUNTER 2018-09-13 14:08 | Outpatient (CLI) | payer BC ==
[2018-09-13 14:30] LABS: Basophils % (Auto) 0.6 % (0.0-1.8); Eosinophils # (Auto) 0.3 K/mm3 (0.0-0.4); Eosinophils % (Auto) 3.9 % (0.0-4.3); Hematocrit 38.3 % (35.5-45.6); Hemoglobin 13.1 gm/dl (11.8-15.2); Lymphocytes # (Auto) 2.5 K/mm3 (1.2-5.4); Lymphocytes % (Auto) 33.4 % (13.4-35.0); Mean Corpuscular HGB Conc 34 % (32-34); Mean Corpuscular Volume 94 fl (84-94); Monocytes # (Auto) 0.5 K/mm3 (0.0-0.8); Monocytes % (Auto) 6.5 % (0.0-7.3); Platelet Count 228 K/mm3 (140-440); Red Blood Count 4.08 M/mm3 (3.65-5.03); Red Cell Distribution Width 15.5 % (13.2-15.2)
[2018-09-13 14:54] LABS: % Iron Saturation 20.15 %
== END 2018-09-13 14:09 | disposition home or self-care (01) ==
LOC: LAB 14:08
PROVIDERS: ATTEND Physician Assistant
DX: D64.9 Anemia, unspecified (principal); K21.9 Gastro-esophageal reflux disease without esophagitis; J44.9 Chronic obstructive pulmonary disease, unspecified; E78.5 Hyperlipidemia, unspecified; E78.00 Pure hypercholesterolemia, unspecified; Z90.49 Acquired absence of other specified parts of digestive tract; Z90.89 Acquired absence of other organs; Z87.891 Personal history of nicotine dependence
CPT/HCPCS: 36415; 83550; 85025

== ENCOUNTER 2018-10-11 15:07 | Outpatient (CLI) | payer BC ==
[2018-10-11 15:40] LABS: Albumin 4.3 g/dL (3.9-5); Calcium 9.2 mg/dL (8.4-10.2); Chol/HDL Ratio 2.13 %
== END 2018-10-11 15:08 | disposition home or self-care (01) ==
LOC: LAB 15:07
PROVIDERS: ATTEND Physician Assistant
DX: I10 Essential (primary) hypertension (principal); E78.2 Mixed hyperlipidemia; K21.9 Gastro-esophageal reflux disease without esophagitis; E78.5 Hyperlipidemia, unspecified; J44.9 Chronic obstructive pulmonary disease, unspecified; E78.00 Pure hypercholesterolemia, unspecified; Z90.89 Acquired absence of other organs; Z90.49 Acquired absence of other specified parts of digestive tract
CPT/HCPCS: 36415; 80053; 80061

== ENCOUNTER 2018-12-19 09:01 | Day surgery (SDC) | payer BC ==
[~2018-12-19 09:01] MED LIST changes: -ANCEF/STERILE WATER 2 GM/20 ML IV NR; -CLORPACTIN WCS-90 IR ONE; -MARCAINE 0.25% INFILTRATI ONE; -MORPHINE IM ONE; +NACL 0.9% 1000 ML 1,000 ML IV SCH; -NEURONTIN PO NR; -PEPCID IV NR; -TORADOL IM ONE
[2018-12-19] MEDS ORDERED: VERSED ONE (12:10)
[2018-12-19] MEDS ORDERED: DIPRIVAN 10 MG/ML IV ONE ×2 (12:10)
--- NOTE | 2018-12-19 12:38 | Short Stay Summary ---
Short Stay Documentation Date of service: 12/19/18 Narrative H&P: The patient presents for EGD due to a history of Enriquez's esophagus and for colonoscopy for a history of colon polyps. His last colonoscopy was 7 years ago. He is s/p Moy fundoplication. - History Past Medical History: CAD (hx 4 stents placed.), COPD, diabetes, hypertension, hyperlipidemia, other (Chronic kidney disease) Past Surgical History: cholecystectomy, hernia repair, Other (spinal surgery, Moy fundplication) Social history: , lives with family, smoking, no alcohol abuse, no prescription drug abuse - Allergies and Medications Current Medications: Allergies No Known Allergies Allergy (Verified 07/17/18 15:18) Home Medications Medication Instructions Recorded Confirmed Last Taken Type Aspirin [Aspirin BABY CHEW TAB] 81 mg PO DAILY 04/06/13 07/27/18 07/20/18 09:00 History Clopidogrel [Plavix] 75 mg PO QDAY 04/06/13 07/27/18 07/20/18 09:00 History Folic Acid 1 tab PO DAILY 04/06/13 07/27/18 07/26/18 09:00 History Fenofibrate Nanocrystallized 160 mg PO DAILY 01/29/14 07/27/18 07/26/18 21:00 History [Tricor] Gabapentin [Neurontin] 900 mg PO BID 01/29/14 07/27/18 07/26/18 21:00 History Melatonin [Melatonin 10MG TAB] 5 mg PO QHS 01/29/14 07/27/18 07/26/18 21:00 History Multivitamin [Multi-Vitamin Daily] 1 tab PO DAILY 01/29/14 07/27/18 07/26/18 09:00 History Niacin (Nf) 500 mg PO HS 01/29/14 07/27/18 07/26/18 21:00 History Pravastatin Sodium [Pravastatin] 10 mg PO QHS 01/29/14 07/27/18 07/26/18 21:00 History Aclidinium Lockhart [Tudorza 400 mcg IH PRN PRN 07/17/18 07/27/18 07/27/18 05:00 History Pressair] Ascorbic Acid [Vitamin C] 1,000 mg PO DAILY 07/17/18 07/27/18 07/26/18 09:00 History Baclofen [Lioresal] 10 mg PO BID 07/17/18 07/27/18 07/26/18 21:00 History Budesonide/Formoterol Fumarate 10.2 gm IH PRN PRN 07/17/18 07/27/18 07/27/18 05:00 History [Symbicort 160-4.5 Mcg Inhaler] Buprenorphine [Butrans] 1 each TD QWEEK 07/17/18 07/17/18 Unknown History Docusate Sodium [Colace CAP] 100 mg PO DAILY 07/17/18 07/27/18 07/26/18 09:00 History Esomeprazole Magnesium [NexIUM] 40 mg PO QDAY 07/17/18 07/27/18 07/26/18 09:00 History Ferrous Sulfate [Iron 325 MG] 325 mg PO DAILY 07/17/18 07/27/18 07/26/18 09:00 History Oxybutynin Chloride [Ditropan Xl] 15 mg PO QDAY 07/17/18 07/27/18 07/27/18 05:00 History Sertraline [Zoloft] 200 mg PO QHS 07/17/18 07/17/18 Unknown History Tamsulosin HCl [Flomax] 0.8 mg PO DAILY 07/17/18 07/17/18 Unknown History guaiFENesin [Mucinex] 600 mg PO BID 07/17/18 07/27/18 07/26/18 21:00 History traZODone [Desyrel] 100 mg PO QHS 07/17/18 07/27/18 07/26/18 21:00 History Nicotine [Habitrol] 21 mg TD QDAY #30 patch 08/03/18 Unknown Rx oxyCODONE /ACETAMINOPHEN [Percocet 2 tab PO Q6H PRN #30 tablet 08/03/18 Unknown Rx 5/325 mg] Active Medications Sodium Chloride (Nacl 0.9% 1000 Ml) 1,000 mls @ 50 mls/hr IV DIRECT KAYLEN Last Admin: 12/19/18 11:41 Dose: 50 mls/hr Documented by: - Physical exam General appearance: no acute distress, well-nourished Integumentary: no rash, no growths, no abnormal pigmentation HEENT: Atraumatic, PERRLA, EOMI, Mucous membr. moist/pink Lungs: Clear to auscultation, Normal air movement Breasts: deferred Heart: Regular rate, Normal S1, Normal S2, No murmurs Gastrointestinal: normoactive bowel sounds, no tenderness, no distended, no masses, no guarding, no organomegaly, no obese Male Genitourinary: deferred Rectal Exam: normal exam-external/orifice, normal rectal tone, no mass Extremities: no ischemia, pulses intact, pulses symmetrical, No edema, normal temperature, normal color, Full ROM Neurological: Normal gait, Normal speech, Strength at 5/5 X4 ext, Normal tone, Sensation intact, Cranial nerves 3-12 NL - Brief post op/procedure progress note Date of procedure: 12/19/18 Findings: reports dictated. Estimated blood loss: none Pathology: list (1. Biopsies of GE junction for hx Enriquez's. 2. Ascending colon polyp) Condition: stable - Disposition Condition at discharge: Good Disposition: DC-01 TO HOME OR SELFCARE - Discharge Diagnoses (1) History of colon polyps Status: Acute (2) History of Enriquez's esophagus Status: Acute Short Stay Discharge Plan Activity: other (no driving for 24 hours, Restart Plavix in 72 hours, observe stools for any blood) Weight Bearing Status: Full Weight Bearing Diet: diabetic Follow up with: INDER ARRINGTON MD [Primary Care Provider] - 7 Days
--- NOTE | 2018-12-19 12:45 | Operative Report ---
Operative Report Operative Report: Date of procedure: 12/19/2018 Procedure: Esophagogastroduodenoscopy with biopsies at the esophagogastric junc tion. Preprocedure diagnosis: History of Enriquez's esophagus. Status post fundoplication with Enriquez's not documented on previous follow-up endoscopy. Post procedure diagnosis: Mildly irregular Z line. No overt evidence of Enriquez's. Evidence of fundoplication. Endoscopist: Dr. Escamilla Anesthesia: Monitored anesthesia care per anesthesia department Medications: Propofol per anesthesia Estimated blood loss: 0 After careful discussion of the nature and purpose of the procedure as well as details the technique risks benefits and alternatives consent was obtained. The patient was placed in the left lateral decubitus position and medicated per anesthesia. The tip of the [employer] EQ 570 video scope was passed per orum under direct vision into the esophagus and advanced into the stomach and descending duodenum. The descending duodenum the duodenal bulb and pylorus were symmetrical and normal. The scope was withdrawn into the stomach and the stomach then gently insufflated with air. The antrum was normal. The stomach was further insufflated and the scope was then retroflexed and partially withdrawn. The fundus, and body of the stomach were within normal limits and easily distensible.there was evidence of fundoplication seen on retroflexed view of the scope at the cardia. A retained suture was also noted. The scope was then withdrawn in the forward position. The esophagogastric junction was at 40 cm. The Z line was slightly irregular and biopsies were taken. There was no overt evidence overall of Enriquez's however. The esophageal body was otherwise normal throughout. The procedure was was well tolerated and the patient was observed in recovery. Impressions: Evidence of fundoplication. Mildly irregular Z line. Biopsies pending. Plan: Await pathology report. The patient called the office in 1 week to rediscuss the findings. Consider repeat endoscopy in 3-5 years if there is any evidence of residual Enriquez's. Continue acid suppression therapy. Electronically signed: Chirag Escamilla MD
--- NOTE | 2018-12-19 12:48 | Operative Report ---
Operative Report Operative Report: Date of procedure: 12/19/2018 Preprocedure diagnosis: History of colon polyps. Last study 7 years ago Post procedure diagnosis: 8 mm semi-sessile ascending colon polyp. Procedure: Colonoscopy to the cecum with hot snare polypectomy. Endoscopist: Dr. Escamilla Anesthesia: Monitored anesthesia care per anesthesia department Estimated blood loss: 0 Medications: Monitored anesthesia care. See separate report by anesthesia for details. After careful discussion of the nature and purpose of the procedure as well as details of the technique risks benefits and alternatives the patient gave consent. Please see recent history and physical from the office. The patient was placed in the left lateral decubitus position and medicated per anesthesia. A rectal exam was performed sphincter tone was normal there were no masses palpable. The [employer] 570 scope was passed transanally and advanced under continuous direct vision without difficulty to the cecum. The colon was well prepared. The cecum was normal. The ascending colon revealed an 8 mm semi-sessile polyp. The polyp was removed with snare with electrocautery and retrieved by suction. The ascending colon was otherwise normal was normal and on forward and retroflexed views. The transverse colon, descending colon, and sigmoid colon were normal. The rectum was normal on forward and retroflexed views. The procedure was well-tolerated overall and the patient was observed in recovery. Conclusions: 8 mm ascending colon polyp. Plan: Await pathology. Repeat colonoscopy in 5 years. Signed electronically: Chirag Escamilla M.D.
--- NOTE | 2018-12-19 13:14 | Anesthesia Day of Surgery ---
Anesthesia Day of Surgery - Day of Surgery Patient Examined: Yes Patient H&P Reviewed: Yes Patient is NPO: Yes Beta Blockers: Yes Cardiac Clearance: No Pulmonary Clearance: No
--- NOTE | 2018-12-19 13:15 | Anesthesia Consultation ---
Anesthesia Consult and Med Hx Date of service: 12/19/18 - Airway Anesthetic Teeth Evaluation: Good ROM Head & Neck: Adequate Mental/Hyoid Distance: Adequate Mallampati Class: Class III Intubation Access Assessment: Good - Pulmonary Exam CTA: Yes - Cardiac Exam Cardiac Exam: No Murmur - Pre-Operative Health Status ASA Pre-Surgery Classification: ASA3 Proposed Anesthetic Plan: MAC - Pulmonary Hx Smoking: Yes Hx Asthma: No Hx Respiratory Symptoms: No COPD: Yes Hx Pneumonia: No Hx Sleep Apnea: Yes - Cardiovascular System Hx Hypertension: No Hx Coronary Artery Disease: Yes Hx Heart Attack/AMI: Yes Hx Percutaneous Transluminal Coronary Angioplasty (PTCA): Yes Hx Cardia Arrhythmia: No Hx Pacemaker: No Hx Internal Defibrillator: No Hx Heart Murmur: No Hx Peripheral Vascular Disease: No - Central Nervous System Hx Neuromuscular Disorder: No (foot drop, DDD) Hx Seizures: No CVA: No Hx Back Pain: Yes Hx Psychiatric Problems: Yes - Gastrointestinal Hx Ulcer: Yes (STOMACH AND INTESTIONAL) Hx Gastroesophageal Reflux Disease: Yes (controlled s/p ilir) - Endocrine Hx Renal Disease: Yes (polycystic kidney disease, s/p right nephrectomy) Hx End Stage Renal Disease: No Hx Insulin Dependent Diabetes: No Hx Non-Insulin Dependent Diabetes: No Hx Thyroid Disease: No - Other Systems Hx Alcohol Use: Yes (social) Hx Substance Use: No Hx Cancer: No
[2018-12-19 13:33] VITALS: BP 108/68
[2018-12-19] MEDS ORDERED: XYLOCAINE 1% MPF 5 mL ONE (14:17)
== END 2018-12-19 09:02 | disposition home or self-care (01) ==
LOC: GIO 09:01
PROVIDERS: ATTEND Internal Medicine Gastroenterology
DX: Z12.11 Encounter for screening for malignant neoplasm of colon (principal); D12.2 Benign neoplasm of ascending colon; K29.50 Unspecified chronic gastritis without bleeding; K21.9 Gastro-esophageal reflux disease without esophagitis; F17.210 Nicotine dependence, cigarettes, uncomplicated; I25.10 Atherosclerotic heart disease of native coronary artery without angina pectoris; E78.5 Hyperlipidemia, unspecified; M48.061 Spinal stenosis, lumbar region without neurogenic claudication; E11.51 Type 2 diabetes mellitus with diabetic peripheral angiopathy without gangrene; I10 Essential (primary) hypertension; J44.9 Chronic obstructive pulmonary disease, unspecified; G43.909 Migraine, unspecified, not intractable, without status migrainosus; E78.00 Pure hypercholesterolemia, unspecified; G47.30 Sleep apnea, unspecified; M19.90 Unspecified osteoarthritis, unspecified site; F32.9 Major depressive disorder, single episode, unspecified; F41.9 Anxiety disorder, unspecified; Z86.010 Personal history of colon polyps; Z98.84 Bariatric surgery status; Z79.899 Other long term (current) drug therapy; Z79.82 Long term (current) use of aspirin; Z95.5 Presence of coronary angioplasty implant and graft; Z96.649 Presence of unspecified artificial hip joint; Z87.19 Personal history of other diseases of the digestive system; Z90.49 Acquired absence of other specified parts of digestive tract; Z87.442 Personal history of urinary calculi; Z87.440 Personal history of urinary (tract) infections; Z72.89 Other problems related to lifestyle; Z98.890 Other specified postprocedural states
CPT/HCPCS: 43239; 45385; 82962; 88305; 88312; 88342; J2250; J2704; J7030

== ENCOUNTER 2019-02-28 06:45 | Inpatient (IN) | payer BC ==
--- NOTE | 2019-02-13 13:25 | Anesthesia Consultation ---
Anesthesia Consult and Med Hx Date of service: 02/13/19 - Airway Anesthetic Teeth Evaluation: Good ROM Head & Neck: Adequate Mental/Hyoid Distance: Adequate Mallampati Class: Class II Intubation Access Assessment: Good - Pulmonary Exam CTA: Yes - Cardiac Exam Cardiac Exam: RRR - Pre-Operative Health Status ASA Pre-Surgery Classification: ASA3 Proposed Anesthetic Plan: General (Patient saw english as a second language teacher today and was cleared - report is yet to be sent to us , patient also wants general anesthesia) - Pulmonary Hx Smoking: Yes (1 PPD X 40 YRS) Hx Asthma: No Hx Respiratory Symptoms: No COPD: Yes (PER CXR , RARE INHALER USE) Hx Pneumonia: No Hx Sleep Apnea: Yes (DX SLEEP APNEA , NO CPAP USE) - Cardiovascular System Hx Hypertension: No Hx Coronary Artery Disease: Yes Hx Heart Attack/AMI: Yes (2004) Hx Angina: No Hx Percutaneous Transluminal Coronary Angioplasty (PTCA): Yes Hx Cardia Arrhythmia: No Hx Pacemaker: No Hx Internal Defibrillator: No Hx Heart Murmur: No Hx Peripheral Vascular Disease: No - Central Nervous System Hx Neuromuscular Disorder: No (foot drop, DDD) Hx Seizures: No CVA: No Hx Back Pain: Yes (CHRONIC) - Gastrointestinal Hx Ulcer: Yes (STOMACH AND INTESTIONAL) Hx Gastroesophageal Reflux Disease: Yes (controlled s/p ilir) - Endocrine Hx Renal Disease: Yes (polycystic kidney disease, s/p right nephrectomy) Hx Insulin Dependent Diabetes: No Hx Non-Insulin Dependent Diabetes: No Hx Thyroid Disease: No - Other Systems Hx Cancer: No
[2019-02-13 13:29] LABS: Basophils # (Auto) 0.1 K/mm3 (0.0-0.1); Basophils % (Auto) 0.7 % (0.0-1.8); Eosinophils # (Auto) 0.2 K/mm3 (0.0-0.4); Eosinophils % (Auto) 1.7 % (0.0-4.3); Hematocrit 41.6 % (35.5-45.6); Hemoglobin 14.3 gm/dl (11.8-15.2); Lymphocytes # (Auto) 2.6 K/mm3 (1.2-5.4); Lymphocytes % (Auto) 27.5 % (13.4-35.0); Mean Corpuscular HGB Conc 35 % (32-34); Mean Corpuscular Volume 96 fl (84-94); Monocytes # (Auto) 0.6 K/mm3 (0.0-0.8); Monocytes % (Auto) 6.4 % (0.0-7.3); Platelet Count 291 K/mm3 (140-440); Red Blood Count 4.32 M/mm3 (3.65-5.03); Red Cell Distribution Width 14.7 % (13.2-15.2)
[2019-02-13 13:35] LABS: Bilirubin,Urine NEG (Negative); Blood,Urine SM (Negative); Color,Urine Yellow (Yellow); Mucus,Urine FEW /HPF; Protein,Urine <15 mg/dL mg/dL (Negative); Urobilinogen,Urine < 2.0 mg/dL (<2.0)
[2019-02-13 13:39] LABS: INR 1.03 (0.87-1.13)
[2019-02-13 13:40] LABS: Partial Thromboplastin Time 25.6 Sec. (24.2-36.6)
[2019-02-13 13:53] LABS: Alanine Aminotransferase 18 units/L (7-56); Albumin 4.8 g/dL (3.9-5); BUN/Creatinine Ratio 15; Blood Urea Nitrogen 15 mg/dL (9-20); Calcium 9.9 mg/dL (8.4-10.2); Hemolysis Index 20
[~2019-02-28 06:45] MED LIST changes: +ANCEF/STERILE WATER 2 GM/20 ML IV NR; +CLORPACTIN WCS-90 IR ONE; -NACL 0.9% 1000 ML 1,000 ML IV SCH; +NACL 0.9% 500 ML 500 ML IV SCH; +VANCOMYCIN/NS 1 GM/250 ML 1 GM/250 ML BAG IV NR
[2019-02-28] MEDS ORDERED: MARCAINE 0.25% INFILTRATI ONE (06:50)
[2019-02-28] MEDS ORDERED: POLYMYXIN B SULFATE IV ONE ×2 (06:50→10:20)
[2019-02-28] MEDS ORDERED: BACITRACIN ONE (06:51)
[2019-02-28] MEDS ORDERED: NACL 0.9% 50 ML ONE (06:51)
[2019-02-28] MEDS ORDERED: MORPHINE ONE (06:51)
[2019-02-28] MEDS ORDERED: TORADOL ONE (06:52)
[2019-02-28] MEDS ORDERED: CLORPACTIN WCS-90 IR ONE ×2 (06:52→11:34)
[2019-02-28] MEDS ORDERED: TRANEXAMIC ACID ONE (06:53)
[2019-02-28] MEDS ORDERED: NACL 0.9% 100 ML ONE (07:24)
[2019-02-28] MEDS ORDERED: NACL 0.9% 250ML 0 ML ONE (07:24)
--- NOTE | 2019-02-28 07:25 | Anesthesia Day of Surgery ---
Anesthesia Day of Surgery - Day of Surgery Patient Examined: Yes Patient H&P Reviewed: Yes Patient is NPO: Yes
[2019-02-28] MEDS ORDERED: TYLENOL PO SCH (07:26)
[2019-02-28] MEDS ORDERED: NACL BACTERIOSTATIC INFILTRATI ONE (07:26)
[2019-02-28] MEDS ORDERED: DILAUDID IV PRN (07:30)
[2019-02-28] MEDS ORDERED: SUBLIMAZE IV PRN ×2 (07:30→13:39)
[2019-02-28] MEDS ORDERED: NEURONTIN PO NR (07:30)
[2019-02-28] MEDS ORDERED: ZOFRAN IV PRN ×3 (07:30→13:39)
[2019-02-28] MEDS ORDERED: LACTATED RINGERS 1,000 ML IV SCH (07:30)
[2019-02-28] MEDS ORDERED: DIPRIVAN 10 MG/ML IV ONE (07:39)
[2019-02-28] MEDS ORDERED: SUBLIMAZE ONE (07:39)
[2019-02-28] MEDS ORDERED: XYLOCAINE MPF 2% ONE (07:42)
[2019-02-28] MEDS ORDERED: DECADRON ONE (07:42)
[2019-02-28] MEDS ORDERED: ZOFRAN ONE (07:42)
[2019-02-28] MEDS ORDERED: ROBINUL ONE (07:42)
[2019-02-28] MEDS ORDERED: ZEMURON IV ONE (07:42)
[2019-02-28] MEDS ORDERED: BLOXIVERZ ONE (07:42)
[2019-02-28] MEDS: VERSED IV NR ×2 (07:50→08:26)
[2019-02-28] MEDS ORDERED: TRANEXAMIC ACID IV ONE (09:05)
[2019-02-28] MEDS ORDERED: BACITRACIN IR ONE (10:20)
[2019-02-28] MEDS ORDERED: LACTATED RINGERS 1,000 ML ONE ×3 (11:53→14:55)
[2019-02-28] MEDS ORDERED: ALBUTEIN IV ONE (12:00)
[2019-02-28] MEDS ORDERED: PHENERGAN PR PRN (12:02)
[2019-02-28] MEDS ORDERED: MILK OF MAGNESIA PO PRN (12:02)
[2019-02-28] MEDS ORDERED: ACLIDINIUM BROMIDE 400 MCG IH PRN (12:05)
[2019-02-28] MEDS ORDERED: NON-FORMULARY (Budesonide/Formoterol Fumarate [Symbicort 160-4.5 Mcg Inhaler] 10.2 GM) IH PRN (12:05)
[2019-02-28] MEDS ORDERED: ZANAFLEX PO PRN (12:05)
--- NOTE | 2019-02-28 12:25 | Progress Note ---
Subjective Date of service: 02/28/19 Interval history: patoent SP ROXIE right side Posterior hip precuations Abduction pillowat all times HIgh bed high chair and high toilet seat. Objective Vital signs: Vital Signs - 12hr 02/28/19 07:05 Temperature 98.5 F Pulse Rate 51 L Respiratory 16 Rate Blood Pressure 97/64 O2 Sat by Pulse 98 Oximetry - Labs CBC & BMP: 02/13/19 12:50 02/13/19 12:50 Labs: Abnormal lab results 02/28/19 Range/Units 07:50 Crossmatch See Detail
[2019-02-28] MEDS ORDERED: SODIUM CHLORIDE FLUSH SYRINGE 10 ML IV NR (13:00)
--- NOTE | 2019-02-28 13:40 | XRay Report ---
XR pelvis 1-2V INDICATION: POSTOP TOTAL HIP (RIGHT). COMPARISON: None available. FINDINGS: Right total hip arthroplasty has been placed with satisfactory postoperative radiographic appearance. Signer Name: Jimi Melchor MD Signed: 02/28/2019 1:36 PM Workstation Name: [id number]
[2019-02-28] MEDS: DILAUDID IV PRN ×2 (14:15→14:25)
--- NOTE | 2019-02-28 14:49 | Consultation ---
History of Present Illness - Reason for Consult Consult date: 02/28/19 Requesting physician: EDMUND MCCORMICK - History of Present Illness 59 YO Male with Nicotine Dependence, JAYDEN, PCKD S/P nephrectomy, COPD, CAD, [place]. Consult placed by Dr. Mccormick for medical management of COPD, JAYDEN. Pt seen and evaluated recovery suite. Pt resting comfortably. Pt is lethargic at time of exam. Pt nurse reports systolic blood pressure in 90-100mmhg range. Pt responds appropriately to questions. Pt states that he "wants a cup of coffee". Pt denies fever, chills, CP,Palpitations, NVD, Shortness of breath. Pt states that pain is controlled. Past History Past Medical History: acute [place], CAD, COPD, other (PCKD) Past Surgical History: Other (Nephrictomy) Social history: smoking Medications and Allergies Allergies Allergy/AdvReac Type Severity Reaction Status Date / Time No Known Allergies Allergy Verified 07/17/18 15:18 Home Medications Medication Instructions Recorded Confirmed Last Taken Type Aspirin [Aspirin BABY CHEW TAB] 81 mg PO DAILY 04/06/13 02/01/19 02/20/19 History Folic Acid 1 tab PO DAILY 04/06/13 02/01/19 02/27/19 History Fenofibrate Nanocrystallized 160 mg PO DAILY 01/29/14 02/01/19 02/27/19 History [Tricor] Gabapentin [Neurontin] 900 mg PO BID 01/29/14 02/01/19 02/27/19 History Melatonin [Melatonin 10MG TAB] 5 mg PO QHS 01/29/14 02/01/19 02/27/19 History Multivitamin [Multi-Vitamin Daily] 1 tab PO DAILY 01/29/14 02/01/19 02/27/19 History Niacin (Nf) 500 mg PO HS 01/29/14 02/01/19 02/27/19 History Pravastatin Sodium [Pravastatin] 10 mg PO QHS 01/29/14 02/01/19 02/27/19 History Aclidinium Truxton [Tudorza 400 mcg IH PRN PRN 07/17/18 02/01/19 02/27/19 History Pressair] Ascorbic Acid [Vitamin C] 1,000 mg PO DAILY 07/17/18 02/01/19 02/27/19 History Baclofen [Lioresal] 10 mg PO BID 07/17/18 02/01/19 02/27/19 History Budesonide/Formoterol Fumarate 10.2 gm IH PRN PRN 07/17/18 02/01/19 02/27/19 History [Symbicort 160-4.5 Mcg Inhaler] Buprenorphine [Butrans] 1 each TD QWEEK 07/17/18 02/28/19 1 Week Ago History ~02/21/19 Docusate Sodium [Colace CAP] 100 mg PO DAILY 07/17/18 02/01/19 02/27/19 History Esomeprazole Magnesium [NexIUM] 40 mg PO QDAY 07/17/18 02/01/19 02/27/19 History Ferrous Sulfate [Iron 325 MG] 325 mg PO DAILY 07/17/18 02/01/19 02/27/19 History Oxybutynin Chloride [Ditropan Xl] 15 mg PO QDAY 07/17/18 02/01/19 02/27/19 History Sertraline [Zoloft] 200 mg PO QHS 07/17/18 02/01/19 02/27/19 History Tamsulosin HCl [Flomax] 0.8 mg PO DAILY 07/17/18 02/01/19 02/27/19 History guaiFENesin [Mucinex] 600 mg PO BID 07/17/18 02/01/19 02/27/19 History traZODone [Desyrel] 100 mg PO QHS 07/17/18 02/01/19 02/27/19 History Nicotine [Habitrol] 21 mg TD QDAY #30 patch 08/03/18 02/01/19 02/27/19 Rx oxyCODONE /ACETAMINOPHEN [Percocet 2 tab PO Q6H PRN #30 tablet 08/03/18 02/01/19 02/27/19 Rx 5/325 mg] Clopidogrel [Plavix] 75 mg PO QDAY 02/01/19 02/01/19 02/20/19 History tiZANidine [Zanaflex 4mg TAB] 4 mg PO PRN PRN 02/01/19 02/01/19 02/27/19 History Active Meds: Active Medications Acetaminophen (Tylenol) 1,000 mg PO ONCE KAYLEN Stop: 02/28/19 23:59 Last Admin: 02/28/19 07:40 Dose: 1,000 mg Documented by: Acetaminophen/Hydrocodone Bitart (Orchard 10/325) 1 each PO Q4H PRN PRN Reason: Pain, Moderate (4-6) Ascorbic Acid (Vitamin C) 1,000 mg PO QDAY KAYLEN Aspirin (Halfprin Ec) 81 mg PO BID KYALEN Baclofen (Lioresal) 10 mg PO BID KAYLEN Cefazolin Sodium (Ancef/Sterile Water 2 Gm/20 Ml) 2 gm IV PREOP NR Stop: 02/28/19 23:00 Clopidogrel Bisulfate (Plavix) 75 mg PO QDAY KAYLEN Ephedrine Sulfate (Ephedrine Sulfate) 50 mg IM ONCE ONE Stop: 02/28/19 14:59 Last Admin: 02/28/19 14:05 Dose: 50 mg Documented by: Fenofibrate (Tricor) 160 mg PO DAILY [facility] Fentanyl (Sublimaze) 50 mcg IV Q5MIN PRN PRN Reason: Pain , Severe (7-10) Stop: 03/01/19 06:00 Folic Acid (Folvite) 1 mg PO DAILY [facility] Gabapentin (Neurontin) 900 mg PO BID [facility] Guaifenesin (Mucinex Er) 600 mg PO BID [facility] Hydromorphone HCl (Dilaudid) 0.5 mg IV Q10MIN PRN PRN Reason: Pain , Severe (7-10) Stop: 02/28/19 23:00 Last Admin: 02/28/19 14:15 Dose: 0.5 mg Documented by: Sodium Chloride (Nacl 0.9% 500 Ml) 500 mls @ 0 mls/hr IV ONCE KAYLEN Stop: 02/28/19 23:00 Vancomycin HCl (Vancomycin/Ns 1 Gm/250 Ml) 1 gm in 250 mls @ 166.667 mls/hr IV PREOP NR; Protocol Stop: 02/28/19 23:00 Last Admin: 02/28/19 08:10 Dose: 166.667 mls/hr Documented by: Lactated Ringer's (Lactated Ringers) 1,000 mls @ 100 mls/hr IV DIRECT KAYLEN Last Admin: 02/28/19 07:50 Dose: 100 mls/hr Documented by: Cefazolin Sodium 2 gm/ Sodium (Chloride) 100 mls @ 200 mls/hr IV Q8H KAYLEN; Protocol Stop: 03/01/19 10:29 Magnesium Hydroxide (Milk Of Magnesia) 30 ml PO Q4H PRN PRN Reason: Constipation Melatonin (Melatonin) 10 mg PO QHS [facility] Miscellaneous Medication (Aclidinium Truxton [Tudorza Pressair]) 400 mcg IH PRN PRN PRN Reason: Shortness Of Breath Miscellaneous Medication (Budesonide/Formoterol Fumarate [Symbicort 160-4.5 Mcg Inhaler]) 10.2 gm IH PRN PRN PRN Reason: Shortness Of Breath Miscellaneous Medication (Buprenorphine [Butrans]) 1 each TD QWEEK [facility] Niacin (Niaspan Er) 500 mg PO HS [facility] Ondansetron HCl (Zofran) 4 mg IV Q8H PRN PRN Reason: Nausea And Vomiting Ondansetron HCl (Zofran) 4 mg IV ONCE PRN PRN Reason: Nausea And Vomiting Oxybutynin Chloride (Ditropan Xl) 15 mg PO QDAY [facility] Pantoprazole Sodium (Protonix) 40 mg PO DAILY [facility] Pravastatin Sodium (Pravachol) 10 mg PO QHS [facility] Promethazine HCl (Phenergan) 25 mg [place] Q6H PRN PRN Reason: Nausea And Vomiting Sertraline HCl (Zoloft) 200 mg PO QHS [facility] Sodium Chloride (Sodium Chloride Flush Syringe 10 Ml) 10 ml IV PRN NR Stop: 02/28/19 23:59 Tamsulosin HCl (Flomax) 0.8 mg PO DAILY [facility] Tizanidine HCl (Zanaflex) 4 mg PO BID PRN PRN Reason: Muscle Spasm Trazodone HCl (Desyrel) 100 mg PO QHS [facility] Review of Systems Constitutional: no weight loss, no weight gain, no fever, no chills Ears, nose, mouth and throat: no ear pain, no ear discharge, no decreased hearing, no nose pain, no nasal discharge, no sinus pressure Cardiovascular: no chest pain, no orthopnea, no rapid/irregular heart beat, no edema, no syncope, no lightheadedness Respiratory: no cough with sputum, no excessive sputum, no shortness of breath, no dyspnea on exertion Gastrointestinal: no nausea, no vomiting, no diarrhea, no constipation, no change in bowel habits Genitourinary Male: no hematuria, no flank pain, no discharge, no urinary frequency, no urinary hesitancy, no incontinence Rectal: no pain, no incontinence, no bleeding Musculoskeletal: no neck stiffness, no neck pain, no shooting arm pain, no low back pain, no shooting leg pain, no leg numbness/tingling Integumentary: no rash, no pruritis, no redness, no sores, no wounds Neurological: no transient paralysis, no paralysis, no weakness, no parathesias, no tingling, no seizures, no syncope, no tremors Psychiatric: no anxiety, no memory loss, no change in sleep habits, no sleep di sturbances, no insomnia, no hypersomnia, no change in appetite, no change in libido Endocrine: no cold intolerance, no heat intolerance, no polyphagia, no excessive thirst, no polyuria, no nocturia, no excessive sweating Hematologic/Lymphatic: no easy bruising, no easy bleeding, no lymphadenopathy Allergic/Immunologic: no urticaria, no allergic rhinitis, no wheezing, no persistent infections, no anaphylaxis, no angioedema Exam - Constitutional Vitals: Temp Pulse Resp BP Pulse Ox 97.8 F 70 14 95/54 95 02/28/19 14:30 02/28/19 14:30 02/28/19 14:30 02/28/19 14:30 02/28/19 14:30 General appearance: Present: no acute distress, well-nourished - EENT Eyes: Present: PERRL ENT: hearing intact, clear oral mucosa - Neck Neck: Present: supple, normal ROM - Respiratory Respiratory effort: normal Respiratory: bilateral: CTA - Cardiovascular Heart Sounds: Present: S1 & S2. Absent: rub, click - Extremities Extremities: pulses symmetrical, No edema Peripheral Pulses: within normal limits - Abdominal General gastrointestinal: Present: soft, non-tender, non-distended, normal bowel sounds Male genitourinary: Present: normal - Integumentary Integumentary: Present: clear, warm, dry - Musculoskeletal Musculoskeletal: gait normal, strength equal bilaterally - Psychiatric Psychiatric: appropriate mood/affect, intact judgment & insight - Neurologic Neurologic: CNII-XII intact, moves all extremities Results - Labs CBC & Chem 7: 02/13/19 12:50 02/13/19 12:50 Labs: Abnormal lab results 02/28/19 02/28/19 Range/Units 07:50 13:47 POC Glucose 136 H (70-105) Crossmatch See Detail Assessment and Plan - Patient Problems (1) JAYDEN and COPD overlap syndrome Current Visit: Yes Status: Acute Plan to address problem: ABG, supplemental oxygen, Chest X ray reviewed, pulse oximetry, remote telemetry, NIPPV qhs, supportive care. nebulizer therapy prn, early ambulation, pulmonary toilet, incentive spirometry (2) Nicotine dependence Current Visit: Yes Status: Acute Qualifiers: Substance use status: uncomplicated Plan to address problem: smoking cessation counseling, supportive care. (3) PUD (peptic ulcer disease) Current Visit: Yes Status: Acute Plan to address problem: PPI therapy
--- NOTE | 2019-02-28 15:25 | Operative Report ---
PREOPERATIVE DIAGNOSES: 1. Severe advanced osteoarthritis, right hip joint. 2. Avascular necrosis and the collapse of the right femoral head. POSTOPERATIVE DIAGNOSES: 1. Severe advanced osteoarthritis, right hip joint. 2. Avascular necrosis and the collapse of the right femoral head. PROCEDURES PERFORMED: 1. Right total hip replacement with complete synovectomy of right hip joint. 2. Synovial hypertrophic proliferation. 3. A complete synovectomy of the right hip joint as well. COMPLICATIONS: None. BLOOD LOSS: Less than 100-150 mL. IMPLANTS USED: Biomet total hip replacement, Taperloc complete femoral stem porous coated reduced distal 15 x 150 mm high offset type 1 taper cementless stem. The acetabulum 54 mm multi-hole OsseoTi Cup was supplemented with 2 screws, 30 and 20 mm with a dual mobility bearing surface liner 44 mm and all poly bearing surface of 44 x 28 size with femoral head 28 mm -3 Biolox ceramic Delta femoral head. High offset femoral stem. BRIEF HISTORY: The patient had a painful arthritic and avascular necrosis of the right hip with stiff arthritic hip. He did great as far as his left hip is concerned and elected for a procedure on the right side. Risks, benefit discussed, informed consent obtained, brought to the hospital for the above procedure. DETAILS OF THE OPERATIVE REPORT: The patient was taken to the operating room. After smooth under general endotracheal anesthesia, all the bony prominences were carefully padded, placed on the left lateral decubitus position with the right side up. The patient was given 1 gram of vancomycin 2 hours before the surgery and a gram of Ancef half an hour before the incision. He was placed on left lateral decubitus position with the right side up. Axillary roll was placed. All the bony prominences were carefully padded. Right hip and right lower extremity prepped and draped in sterile fashion. Timeout was performed. The patient's posterolateral approach was used. A 15 cm longitudinal incision made over the right hip, posterolateral approach and incision carried down deep to subcutaneous tissue. Tensor fascia exposed. Tensor fascia incised in the interval between gluteus isabel and tensor fascia muscle. Posterior capsule, short external rotators were identified, tacked through with 0 Ethibond sutures and they are taken off from the greater trochanter using Bovie. The hip abductors were identified and retracted and protected. Once this was done, Trapdoor based capsulotomy was performed and tacked with 0 Ethibond sutures as well. Hip joint was identified. Significant synovial hypertrophic proliferation was noticed and complete synovectomy performed. The severely arthritic head was then delivered out. The LTC measured was 55 mm to 56 mm, very close to what we templated preoperatively. Femoral neck osteotomy was performed a centimeter above the lesser trochanter as templated preoperatively. The head was completely collapsed and there were ring osteophytes. No bare bone, no cartilage left, severe arthritis all around the socket was also noticed. The labrum was removed. Pulvinar was clean. The acetabulum was identified. Retractors were placed. Labrum removed. Pulvinar cleaned and we started reaming with size 48 reamer, gradually increased the size to 53 reamer, which gave us great fit. The patient had a great fit with the 54 cup. It would be appropriate. We reamed for a good hemispherical cup. We inserted a 54 cup multi-hole in a 20-degree forward flexion and 40 degree abducted position. This was supplemented with 6.5 mm screw. Great fixation was achieved with trial with all poly liner first. Impinging osteophytes were removed. All poly liner was then inserted. A trial liner was then inserted after impinging osteophytes were removed. Attention was drawn on the femoral side. We prepared for the taper lock stem using box osteotome, canal finder, lateralizing reamer and started broaching with size 4 broach and gradually increased the size to size 15 broach in 15 degree anteverted position, which gave us great stability to torque testing. We trialed with -3.5 and 0 head. With -3.5 head, we matched LTC, knee and heel level matched as well. With 0 head, the leg lengths were all longer and given the significant arthritic and stiffness in the hip, we decided patient had a better stability with a dual mobility bearing surface as he had same thing on the other side. We decided to do that, would give him much better stability. We trialed with a dual mobility bearing surface with -3.5 head. We matched the leg length, matched the lesser trochanter to center distance and had great range of motion at full flexion and full extension, full external rotation, full extension and in 90-degree flexed and abducted position, we could internally rotate up to 80 degrees and 90-degree flexion adducted position. We could internally rotate up to 70-80 degrees as well. No impingement, no dislocation. We decided to go with real component. The trial components were removed, thoroughly washed the hip area with antibiotic-soaked normal saline followed by normal saline. Real liner was impacted in place and well seated dual mobility liner. Following this, the femur was cleaned, dried, and washed and real stem was inserted. Trunnion was cleaned, dried, and washed and dried, and real dual mobility bearing surface was inserted, which was assembled on the back table. Thorough washing was done with antibiotic-soaked normal saline followed by normal saline and Clorpactin irrigation was also performed. Posterior capsule and short external rotators were tacked through drill holes made in the great trochanter. Tensor fascia was closed with 0 Vicryl sutures interrupted. Subcutaneous tissue was closed with 0 and 2-0 Vicryl interrupted sutures. Skin was closed with Monocryl. Aquacel dressing done. Abduction pillow applied. The patient tolerated the procedure very well, shifted to recovery room in stable condition. Sponge and needle count was correct. JOB# [id number] SK/BRANDIE
--- NOTE | 2019-02-28 15:57 | Post Anesthesia Evaluation ---
- Post Anesthesia Evaluation Patient Participated: Yes Airway Patent: Yes Stable Respiratory Function: Yes Nausea/Vomiting: No Temp > 96.8F: Yes Pain Manageable: Yes Adequeate Hydration: Yes Anesthesia Complications: No Other Comments: BP returned to preop baseline.
[2019-02-28] MEDS ORDERED: NACL 0.9% 1000 ML 1,000 ML ONE (16:55)
[2019-02-28] MEDS ORDERED: NACL 0.9% 500 ML 500 ML IV ONE (18:00)
[2019-02-28] MEDS: ceFAZolin 2 GM in NACL 0.9% 100 ML IV SCH (18:14)
[2019-02-28 18:16] LABS: ABG Base Excess -3.1 mmol/L (-2.0-3.0); ABG HCO3 23.4 mmol/L (20.0-26.0); ABG Methemoglobin 0.6 % (0.0-1.5); ABG Oxygen Saturation 98.8 % (95.0-99.0); ABG PH 7.306 pH Units (7.350-7.450); ABG PO2 160.5 mm Hg (80.0-90.0)
[2019-02-28] MEDS: ZOLOFT PO SCH (21:31)
[2019-02-28] MEDS: HALFPRIN EC PO SCH (21:31)
[2019-02-28] MEDS: NEURONTIN PO SCH (21:32)
[2019-02-28] MEDS: DESYREL PO SCH (21:32)
[2019-02-28] MEDS: LIORESAL PO SCH (21:32)
[2019-02-28] MEDS: PRAVACHOL PO SCH (21:32)
[2019-02-28] MEDS: MELATONIN PO SCH (21:32)
[2019-02-28] MEDS: NIASPAN ER PO SCH (21:36)
[2019-02-28] MEDS: PULMICORT IH SCH (21:50)
[2019-02-28] MEDS: BROVANA NEBU IH SCH (21:50)
[2019-02-28] MEDS ORDERED: NIACIN 500 MG PO SCH (22:00)
[2019-02-28] MEDS ORDERED: NON-FORMULARY (Gabapentin [Neurontin] 900 MG) PO SCH (22:00)
[2019-02-28] MEDS ORDERED: NON-FORMULARY (Pravastatin Sodium [Pravastatin] 10 MG) PO SCH (22:00)
[2019-02-28] MEDS ORDERED: MELATONIN 5 MG PO SCH (22:00)
[2019-02-28] MEDS ORDERED: ASPIRIN PO SCH (22:00)
[2019-02-28] MEDS: HABITROL TD SCH (22:46)
[2019-02-28] MEDS: NORCO 10/325 PO PRN (22:46)
[2019-02-28] MEDS: MUCINEX ER PO SCH (22:47)
[2019-03-01] MEDS ORDERED: NACL 0.9% 500 ML 500 ML IV ONE ×2 (00:17→06:01)
[2019-03-01] MEDS: TORADOL IV PRN ×2 (00:30→13:17)
[2019-03-01] MEDS: ceFAZolin 2 GM in NACL 0.9% 100 ML IV SCH ×2 (02:29→13:25)
[2019-03-01] MEDS: NORCO 10/325 PO PRN ×3 (02:37→22:31)
[2019-03-01 04:55] LABS: Hematocrit 30.9 % (35.5-45.6); Hemoglobin 10.7 gm/dl (11.8-15.2)
[2019-03-01 05:04] LABS: INR 1.24 (0.87-1.13)
[2019-03-01 05:20] LABS: BUN/Creatinine Ratio 14; Blood Urea Nitrogen 11 mg/dL (9-20); Calcium 8.2 mg/dL (8.4-10.2); Hemolysis Index 2
[2019-03-01] MEDS: PULMICORT IH SCH ×2 (07:09→21:00)
[2019-03-01] MEDS: BROVANA NEBU IH SCH ×2 (07:09→21:00)
[2019-03-01] MEDS ORDERED: OXYBUTYNIN CHLORIDE 15 MG PO SCH (10:00)
[2019-03-01] MEDS ORDERED: NON-FORMULARY (Folic Acid [Folic Acid] 1 TAB) PO SCH (10:00)
[2019-03-01] MEDS ORDERED: NON-FORMULARY (Esomeprazole Magnesium [Nexium] 40 MG) PO SCH (10:00)
[2019-03-01] MEDS ORDERED: NON-FORMULARY (Ascorbic Acid [Vitamin C] 1,000 MG) PO SCH (10:00)
[2019-03-01] MEDS: MUCINEX ER PO SCH ×2 (10:35→22:18)
[2019-03-01] MEDS: PLAVIX PO SCH (10:36)
[2019-03-01] MEDS: LIORESAL PO SCH ×2 (10:37→22:17)
[2019-03-01] MEDS: HALFPRIN EC PO SCH ×2 (10:37→22:17)
[2019-03-01] MEDS: FOLVITE PO SCH (10:38)
[2019-03-01] MEDS: PROTONIX PO SCH (10:39)
[2019-03-01] MEDS: NEURONTIN PO SCH ×2 (10:40→22:19)
[2019-03-01] MEDS: FLOMAX PO SCH (10:40)
[2019-03-01] MEDS: VITAMIN C PO SCH (10:40)
[2019-03-01] MEDS: DITROPAN XL PO SCH (13:18)
[2019-03-01] MEDS: TRICOR PO SCH (13:19)
[2019-03-01] MEDS ORDERED: NACL 0.9% 250ML 250 ML ONE (14:14)
[2019-03-01] MEDS: DESYREL PO SCH (22:15)
[2019-03-01] MEDS: MELATONIN PO SCH (22:18)
[2019-03-01] MEDS: NIASPAN ER PO SCH (22:20)
[2019-03-01] MEDS: PRAVACHOL PO SCH (22:21)
[2019-03-01] MEDS: ZOLOFT PO SCH (22:22)
[2019-03-01] MEDS: HABITROL TD SCH (22:24)
[2019-03-02] MEDS: TORADOL IV PRN ×2 (04:24→16:32)
[2019-03-02 08:40] VITALS: BP 91/45
[2019-03-02] MEDS: VITAMIN C PO SCH (09:00)
[2019-03-02] MEDS: NORCO 10/325 PO PRN ×2 (09:00→16:57)
[2019-03-02] MEDS: HALFPRIN EC PO SCH (09:00)
[2019-03-02] MEDS: NEURONTIN PO SCH (09:01)
[2019-03-02] MEDS: MUCINEX ER PO SCH (09:02)
[2019-03-02] MEDS: FLOMAX PO SCH (09:02)
[2019-03-02] MEDS: FOLVITE PO SCH (09:03)
[2019-03-02] MEDS: DITROPAN XL PO SCH (09:03)
[2019-03-02] MEDS: PROTONIX PO SCH (09:03)
[2019-03-02] MEDS: TRICOR PO SCH (09:04)
[2019-03-02] MEDS: LIORESAL PO SCH (09:05)
[2019-03-02] MEDS: BROVANA NEBU IH SCH (10:17)
[2019-03-02] MEDS: PULMICORT IH SCH (10:17)
[2019-03-02] MEDS: PLAVIX PO SCH (11:07)
--- NOTE | 2019-03-02 13:08 | Progress Note ---
Assessment and Plan (1) JAYDEN and COPD overlap syndrome Current Visit: Yes Status: Acute Plan to address problem: ABG, supplemental oxygen, Chest X ray reviewed, pulse oximetry, remote telemetry, NIPPV qhs, supportive care. nebulizer therapy prn, early ambulation, pulmonary toilet, incentive spirometry (2) Nicotine dependence Current Visit: Yes Status: Acute Qualifiers: Substance use status: uncomplicated Plan to address problem: smoking cessation counseling, supportive care. (3) PUD (peptic ulcer disease) Current Visit: Yes Status: Acute Plan to address problem: PPI therapy 4.Rt ROXIE Post op doing well Subjective Date of service: 03/01/19 Principal diagnosis: R ROXIE Interval history: patient SP ROXIE right side Doing well Objective - Constitutional Vitals: Vital Signs - 12hr 03/02/19 03/02/19 03/02/19 04:15 04:24 08:39 Temperature 98.1 F 97.7 F Pulse Rate 73 79 Pulse Rate [ Anterior Bilateral Throughout] Respiratory 20 20 18 Rate Respiratory Rate [Anterior Bilateral Throughout] Blood Pressure 95/47 Blood Pressure 91/45 [Right] O2 Sat by Pulse 93 95 Oximetry 03/02/19 03/02/19 03/02/19 08:50 10:00 10:18 Temperature Pulse Rate Pulse Rate [ 82 Anterior Bilateral Throughout] Respiratory 19 Rate Respiratory 18 Rate [Anterior Bilateral Throughout] Blood Pressure Blood Pressure [Right] O2 Sat by Pulse 97 95 Oximetry General appearance: Present: no acute distress, well-nourished - EENT Eyes: PERRL, EOM intact ENT: hearing intact, clear oral mucosa Ears: bilateral: normal - Neck Neck: supple, normal ROM - Respiratory Respiratory effort: normal Respiratory: bilateral: CTA - Breasts Breasts: normal - Cardiovascular Rhythm: regular Heart Sounds: Present: S1 & S2. Absent: gallop, rub Extremities: pulses intact, No edema, normal color, Full ROM - Gastrointestinal General gastrointestinal: Present: soft, non-tender, non-distended, normal bowel sounds - Genitourinary Male genitourinary: normal - Integumentary Integumentary: clear, warm, dry - Musculoskeletal Musculoskeletal: 1, strength equal bilaterally - Neurologic Neurologic: moves all extremities - Psychiatric Psychiatric: memory intact, appropriate mood/affect, intact judgment & insight - Labs CBC & Chem 7: 03/01/19 04:17 03/01/19 04:17
--- NOTE | 2019-03-02 15:44 | Discharge Summary ---
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 Reason For Exam: POST TOTAL HIP 02/28/19 12:03 Physical Therapy Evaluation and Treat [CONS] Routine Comment: POSTERIOR HIP PRECUATIONS Reason For Exam: POSTOP TOTAL HIP Mode of Transport?: Walker Weight bearing status?: Full wt bearing 02/28/19 12:12 Consult to Physician [CONS] Stat Comment: Consulting Provider: ANTONIETA JEWELL Physician Instructions: Reason For Exam: ADMIT AND POSTOP MANAGEMENT Primary care physician: INDER ARRINGTON MD Hospitalization Procedures: Rt Total Hip Arthroplasty Hospital course: (1) JAYDEN and COPD overlap syndrome Current Visit: Yes Status: Acute Plan to address problem: ABG, supplemental oxygen, Chest X ray reviewed, pulse oximetry, remote telemetry, NIPPV qhs, supportive care. nebulizer therapy prn, early ambulation, pulmonary toilet, incentive spirometry (2) Nicotine dependence Current Visit: Yes Status: Acute Qualifiers: Substance use status: uncomplicated Plan to address problem: smoking cessation counseling, supportive care. (3) PUD (peptic ulcer disease) Current Visit: Yes Status: Acute Plan to address problem: PPI therapy 4.Rt ROXIE Post op doing well Disposition: DC-01 TO HOME OR SELFCARE Core Measure Documentation - Palliative Care Palliative Care/ Comfort Measures: Not Applicable - Core Measures Any of the following diagnoses?: none Exam - Constitutional Vitals: Temp Pulse Resp BP Pulse Ox 97.7 F 82 18 91/45 95 03/02/19 08:39 03/02/19 10:18 03/02/19 10:18 03/02/19 08:39 03/02/19 10:00 General appearance: Present: no acute distress, well-nourished - EENT Eyes: Present: PERRL ENT: hearing intact, clear oral mucosa - Neck Neck: Present: supple, normal ROM - Respiratory Respiratory effort: normal Respiratory: bilateral: CTA - Cardiovascular Heart rate: 78 Rhythm: regular Heart Sounds: Present: S1 & S2. Absent: rub, click - Extremities Extremities: no ischemia, pulses intact, pulses symmetrical, No edema Peripheral Pulses: within normal limits - Abdominal General gastrointestinal: Present: soft, non-tender, non-distended, normal bowel sounds Male genitourinary: Present: normal - Rectal Rectal Exam: deferred - Integumentary Integumentary: Present: clear, warm, dry - Musculoskeletal Musculoskeletal: gait normal, strength equal bilaterally - Psychiatric Psychiatric: appropriate mood/affect, intact judgment & insight - Neurologic Neurologic: CNII-XII intact, moves all extremities - Allied Health Allied health notes reviewed: nursing, case management Plan Weight Bearing Status: Weight Bear as Tolerated Diet: low salt Follow up with: INDER ARRINGTON MD [Primary Care Provider] - 7 Days EDMUND MCCORMICK MD [Staff Physician] - 7 Days
[2019-03-07] MEDS ORDERED: BUPRENORPHINE TD SCH (10:00)
== END 2019-03-02 15:45 | disposition home health service (06) | DRG 470 ==
LOC: UNDOADMIN 06:45 → 3A 06:45 → 3B-SURG 12:21
PROVIDERS: ADMIT Orthopaedic Surgery; ATTEND Orthopaedic Surgery
PROC: 0SR902A Replacement of Right Hip Joint with Metal on Polyethylene Synthetic Substitute, Uncemented, Open Approach (ICD-10-PCS; principal; 2019-02-28)
PROC: 4A033R1 Measurement of Arterial Saturation, Peripheral, Percutaneous Approach (ICD-10-PCS; 2019-02-28)
PROC: 5A09357 Assistance with Respiratory Ventilation, Less than 24 Consecutive Hours, Continuous Positive Airway Pressure (ICD-10-PCS; 2019-02-28)
DX: M16.11 Unilateral primary osteoarthritis, right hip (principal); M87.851 Other osteonecrosis, right femur; J44.9 Chronic obstructive pulmonary disease, unspecified; F17.210 Nicotine dependence, cigarettes, uncomplicated; G47.33 Obstructive sleep apnea (adult) (pediatric); K21.9 Gastro-esophageal reflux disease without esophagitis; I25.10 Atherosclerotic heart disease of native coronary artery without angina pectoris; I25.2 Old myocardial infarction; Z90.5 Acquired absence of kidney; Z79.82 Long term (current) use of aspirin; Z79.899 Other long term (current) drug therapy; Z71.6 Tobacco abuse counseling; Z95.5 Presence of coronary angioplasty implant and graft
CPT/HCPCS: 36415; 36600; 72170; 80048; 80053; 81001; 82803; 82962; 85014; 85018; 85025; 85610; 85730; 86850; 86900; 86901; 86920; 87086; 87116; 88304; 88311; 94640; 94660; 94760; 99406; G0378; A9270-GY; C1776; J0690; J1100; J1170; J1885; J2250; J2270; J2405; J2704; J2710; J3010; J7030; J7040; J7050; J7120; P9045

== ENCOUNTER 2019-09-10 15:31 | Outpatient (CLI) | payer BC ==
[2019-09-10 16:26] LABS: Basophils # (Auto) 0.1 K/mm3 (0.0-0.1); Basophils % (Auto) 0.7 % (0.0-1.8); Eosinophils # (Auto) 0.2 K/mm3 (0.0-0.4); Eosinophils % (Auto) 1.5 % (0.0-4.3); Hematocrit 41.8 % (35.5-45.6); Hemoglobin 14.2 gm/dl (11.8-15.2); Lymphocytes # (Auto) 3.6 K/mm3 (1.2-5.4); Lymphocytes % (Auto) 24.9 % (13.4-35.0); Mean Corpuscular HGB Conc 34 % (32-34); Mean Corpuscular Volume 96 fl (84-94); Monocytes # (Auto) 1.2 K/mm3 (0.0-0.8); Monocytes % (Auto) 8.3 % (0.0-7.3); Platelet Count 320 K/mm3 (140-440); Red Blood Count 4.36 M/mm3 (3.65-5.03); Red Cell Distribution Width 14.3 % (13.2-15.2)
[2019-09-10 16:32] LABS: Bilirubin,Urine NEG (Negative); Blood,Urine NEG (Negative); Color,Urine Yellow (Yellow); Protein,Urine <15 mg/dL mg/dL (Negative)
[2019-09-10 16:39] LABS: Alanine Aminotransferase 17 units/L (7-56); Albumin 4.3 g/dL (3.9-5); BUN/Creatinine Ratio 13; Blood Urea Nitrogen 14 mg/dL (9-20); Calcium 9.4 mg/dL (8.4-10.2); Chol/HDL Ratio 2.12 %; HDL Cholesterol 50 mg/dL (40-59); Hemolysis Index 13; LDL Cholesterol,Direct 46 mg/dL (50-130)
[2019-09-10 16:42] LABS: Creatinine,Urine 42.8 mg/dL (0.1-20.0)
== END 2019-09-10 15:32 | disposition home or self-care (01) ==
LOC: LAB 15:31
PROVIDERS: ATTEND Physician Assistant
DX: I10 Essential (primary) hypertension (principal); E78.00 Pure hypercholesterolemia, unspecified
CPT/HCPCS: 36415; 80053; 80061; 81001; 82043; 83036; 85025; 87086

== ENCOUNTER 2020-01-29 16:09 | Outpatient (CLI) | payer BC ==
[2020-01-29 16:46] LABS: Basophils # (Auto) 0.1 K/mm3 (0.0-0.1); Basophils % (Auto) 0.6 % (0.0-1.8); Eosinophils # (Auto) 0.4 K/mm3 (0.0-0.4); Eosinophils % (Auto) 3.5 % (0.0-4.3); Hematocrit 44.1 % (35.5-45.6); Hemoglobin 14.7 gm/dl (11.8-15.2); Lymphocytes # (Auto) 3.2 K/mm3 (1.2-5.4); Lymphocytes % (Auto) 28.4 % (13.4-35.0); Mean Corpuscular HGB Conc 33 % (32-34); Mean Corpuscular Volume 99 fl (84-94); Monocytes # (Auto) 0.8 K/mm3 (0.0-0.8); Monocytes % (Auto) 7.1 % (0.0-7.3); Platelet Count 281 K/mm3 (140-440); Red Blood Count 4.45 M/mm3 (3.65-5.03); Red Cell Distribution Width 13.9 % (13.2-15.2)
== END 2020-01-29 16:10 | disposition home or self-care (01) ==
LOC: LAB 16:09
PROVIDERS: ATTEND Family Medicine
DX: D72.829 Elevated white blood cell count, unspecified (principal)
CPT/HCPCS: 36415; 85025

== ENCOUNTER 2020-04-07 14:24 | Emergency (ER) | payer BC, MEDICARE ==
[2020-04-07 14:41] VITALS: BP 116/56
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
--- NOTE | 2020-04-07 19:33 | Cat Scan Report ---
CT HEAD WITHOUT CONTRAST INDICATION / CLINICAL INFORMATION: headache. TECHNIQUE: All CT scans at this location are performed using CT dose reduction for ALARA by means of automated e xposure control. COMPARISON: None available. FINDINGS: HEMORRHAGE: No evidence of intracranial hemorrhage or extra-axial fluid collection. EXTRA-AXIAL SPACES: Cortical sulci, sylvian fissures and basilar cisterns have an unremarkable appear ance. VENTRICULAR SYSTEM: The ventricular system is of normal size and configuration. CEREBRAL PARENCHYMA: No areas of abnormal brain parenchymal attenuation are identified. There is no i ndication of recent infarction. MIDLINE SHIFT OR HERNIATION: There is no mass effect. CEREBELLUM / BRAINSTEM: Brainstem and cerebellum have an unremarkable appearance. MIDLINE STRUCTURES:No abnormalities of the pituitary gland or pineal region are identified. INTRACRANIAL VESSELS: Calcified atherosclerotic plaque is seen along the course of the cavernous segm ents of both internal carotid arteries. ORBITS: visualized portions of the orbits have an unremarkable appearance. SOFT TISSUES of HEAD: No significant abnormality. CALVARIUM: Evaluation of bone windows reveals no abnormalities. PARANASAL SINUSES / MASTOID AIR CELLS: Paranasal sinuses are free from inflammatory mucosal disease. Mastoid air cells are normally pneumatized. ADDITIONAL FINDINGS: None. IMPRESSION: 1. No significant intercranial abnormalities are observed on head CT without contrast. Signer Name: Brad Cardenas MD Signed: 04/07/2020 7:28 PM Workstation Name: [id number]
--- NOTE | 2020-04-07 19:34 | XRay Report ---
Cervical spine 4 views INDICATION: Neck pain after injury IMPRESSION: Mild multilevel discogenic and uncovertebral arthropathy throughout the cervical spine. N o acute fracture or subluxation is appreciated. Signer Name: Mina Duval MD Signed: 04/07/2020 7:29 PM Workstation Name: [id number]
--- NOTE | 2020-04-07 19:35 | XRay Report ---
Lumbar spine 4 views INDICATION: Low back pain following injury IMPRESSION: Borderline diffuse osteopenia. Prior hemilaminectomy with left-sided L4-L5 posterior cons truct. Mild multifocal neural foraminal narrowing involving L4-L5 and L5-S1 stimulation type device p rojects above the radiograph of the thoracic spine region. Signer Name: Mina Duval MD Signed: 04/07/2020 7:31 PM Workstation Name: [id number]
[2020-04-07] MEDS ORDERED: KETOROLAC 30 MG/1 ML INJ IM ONE ×2 (20:22→20:24)
== END 2020-04-07 20:30 | disposition home or self-care (01) ==
LOC: ED 14:24
DX: M79.10 Myalgia, unspecified site (principal); R51 Headache; I10 Essential (primary) hypertension; I25.2 Old myocardial infarction; E11.9 Type 2 diabetes mellitus without complications; K21.9 Gastro-esophageal reflux disease without esophagitis; F17.200 Nicotine dependence, unspecified, uncomplicated; M19.90 Unspecified osteoarthritis, unspecified site; J44.9 Chronic obstructive pulmonary disease, unspecified; Z87.442 Personal history of urinary calculi; Z79.899 Other long term (current) drug therapy; Z98.890 Other specified postprocedural states; Z90.49 Acquired absence of other specified parts of digestive tract; V49.49XA Driver injured in collision with other motor vehicles in traffic accident, initial encounter; Y92.410 Unspecified street and highway as the place of occurrence of the external cause; Y93.89 Activity, other specified; Y99.8 Other external cause status
CPT/HCPCS: 70450; 72040; 72100; 96372; 99284; J1885

== ENCOUNTER 2020-05-21 11:32 | Outpatient (CLI) | payer BC, MEDICARE ==
[2020-05-21 12:23] LABS: Basophils # (Auto) 0.1 K/mm3 (0.0-0.1); Basophils % (Auto) 0.9 % (0.0-1.8); Eosinophils # (Auto) 0.4 K/mm3 (0.0-0.4); Eosinophils % (Auto) 4.1 % (0.0-4.3); Hemoglobin 14.5 gm/dl (11.8-15.2); Lymphocytes # (Auto) 3.2 K/mm3 (1.2-5.4); Lymphocytes % (Auto) 33.2 % (13.4-35.0); Mean Corpuscular HGB Conc 34 % (32-34); Mean Corpuscular Volume 100 fl (84-94); Monocytes # (Auto) 0.6 K/mm3 (0.0-0.8); Monocytes % (Auto) 6.7 % (0.0-7.3); Platelet Count 282 K/mm3 (140-440); Red Blood Count 4.32 M/mm3 (3.65-5.03); Red Cell Distribution Width 14.3 % (13.2-15.2)
[2020-05-21 13:13] LABS: Alanine Aminotransferase 12 units/L (7-56); Albumin 4.1 g/dL (3.9-5); BUN/Creatinine Ratio 12; Blood Urea Nitrogen 14 mg/dL (9-20); Calcium 9.2 mg/dL (8.4-10.2); Chol/HDL Ratio 2.92 %; HDL Cholesterol 40 mg/dL (40-59); Hemolysis Index 31; LDL Cholesterol,Direct 73 mg/dL (50-130)
== END 2020-05-21 11:33 | disposition home or self-care (01) ==
LOC: LAB 11:32
PROVIDERS: ATTEND Physician Assistant
DX: E78.2 Mixed hyperlipidemia (principal); E11.9 Type 2 diabetes mellitus without complications; I10 Essential (primary) hypertension
CPT/HCPCS: 36415; 80053; 80061; 83036; 85025

== ENCOUNTER 2020-08-29 10:43 | Outpatient (CLI) | payer BC, MEDICARE ==
[2020-08-29 12:14] LABS: Blood Urea Nitrogen 11 mg/dL (9-20)
--- NOTE | 2020-08-29 14:41 | Magnetic Resonance Report ---
MRI LUMBAR SPINE WITHOUT AND WITH CONTRAST INDICATION / CLINICAL INFORMATION: Low back pain. Lumbar radiculopathy. Prior lumbar surgery. TECHNIQUE: Multisequence, multiplanar images of the lumbar spine were obtained. Contrast dose report: Clariscan 16 ML administered intravenously. COMPARISON: MRI lumbar spine 07/26/2015. Lumbar spine series 04/07/2020 FINDINGS: POSTOPERATIVE CHANGES: There is post remote laminectomy, lateral interbody fusion and unilateral left -sided segmental posterior instrumentation at the L4-5 level. Patient is status post more recent lami nectomy at L5. ALIGNMENT: Normal alignment is maintained throughout the lumbar region. VERTEBRAE:Reactive degenerative changes observed at inferior endplate L5 and superior endplate S1 whe re Modic type I bone marrow changes are observed. Postoperative changes are identified as described a althea. No additional areas of abnormal bone marrow signal intensity are identified. DISC MORPHOLOGY: D isc desiccation is noted at the L1-2 and L5-S1 levels. VISUALIZED SPINAL CORD: Distal thoracic spinal cord, conus and nerve roots of the cauda equina all parmar ve an unremarkable appearance. Conus terminates at about the level of the mid L1 vertebral body. [id number] ANALYSIS: L1-2: Mild disc desiccation is noted. There is no indication of disc herniation, central canal stenos is or interbody fusion. L2-3: No significant abnormality. L3-4: Mild facet arthropathy. Central spinal canal and neuroforamina are adequately maintained. L4-5: Status post laminectomy and lateral interbody fusion supported by left sided unilateral segment al instrumentation. There is no indication of bone union across this postoperative intervertebral dis c. Central spinal canal and neuroforamina are adequately maintained. Findings are stable since previo us study. L5-S1: Status post L5 laminectomy since prior study. Central spinal canal is adequately maintained at this surgically decompressed level. Bilateral facet arthropathy is noted. Central disc height and fa cet arthropathy contribute to moderate right-sided and severe left-sided neuroforaminal stenosis at t he L5 nerve root level. The degree of foraminal stenosis has progressed in comparison to previous marija dy. PARASPINAL SOFT TISSUES: A serpiginous tubular structure of abnormal signal intensity is seen in the retroperitoneum anterior to the L2, L1 and T12 vertebrae. This may represent venous collateral or dil ated lymphatics. Similar findings were present on previous study. IMPRESSION: 1. Postoperative changes at L4-5 and L5-S1 as described above. 2. Interval development of left worse than right neuroforaminal stenosis at the L5 nerve root level w hen compared to previous study 07/26/2015. Signer Name: Brad Cardenas MD Signed: 08/29/2020 2:37 PM Workstation Name: [id number]
== END 2020-08-29 10:44 | disposition home or self-care (01) ==
LOC: MRI 10:43
PROVIDERS: ATTEND Anesthesiology
DX: M47.816 Spondylosis without myelopathy or radiculopathy, lumbar region (principal); M51.27 Other intervertebral disc displacement, lumbosacral region
CPT/HCPCS: 36415; 72158; 82565; 84520; A9575

== ENCOUNTER 2020-11-17 13:33 | Outpatient (CLI) | payer BC, MEDICARE ==
[2020-11-17 14:29] LABS: Erythrocyte Sedimentation Rate 6 mm/Hr (0-20)
[2020-11-17 14:38] LABS: Basophils # (Auto) 0.1 K/mm3 (0.0-0.1); Basophils % (Auto) 0.8 % (0.0-1.8); Eosinophils # (Auto) 0.5 K/mm3 (0.0-0.4); Eosinophils % (Auto) 5.9 % (0.0-4.3); Hematocrit 45.2 % (35.5-45.6); Hemoglobin 15.2 gm/dl (11.8-15.2); Lymphocytes # (Auto) 3.5 K/mm3 (1.2-5.4); Lymphocytes % (Auto) 37.8 % (13.4-35.0); Mean Corpuscular HGB Conc 34 % (32-34); Mean Corpuscular Volume 100 fl (84-94); Monocytes # (Auto) 0.8 K/mm3 (0.0-0.8); Monocytes % (Auto) 8.3 % (0.0-7.3); Platelet Count 260 K/mm3 (140-440); Red Blood Count 4.54 M/mm3 (3.65-5.03); Red Cell Distribution Width 13.8 % (13.2-15.2)
== END 2020-11-17 13:34 | disposition home or self-care (01) ==
LOC: LAB 13:33
PROVIDERS: ATTEND Orthopaedic Surgery
DX: M70.62 Trochanteric bursitis, left hip (principal)
CPT/HCPCS: 36415; 82495; 83018; 85025; 85652; 86140

== ENCOUNTER 2020-12-05 14:42 | Outpatient (CLI) | payer BC, MEDICARE ==
[2020-12-05 15:03] LABS: Hematocrit 44.2 % (35.5-45.6); Hemoglobin 15.1 gm/dl (11.8-15.2); Mean Corpuscular HGB Conc 34 % (32-34); Mean Corpuscular Volume 100 fl (84-94); Platelet Count 262 K/mm3 (140-440); Red Blood Count 4.43 M/mm3 (3.65-5.03); Red Cell Distribution Width 13.5 % (13.2-15.2)
[2020-12-05 15:24] LABS: Alanine Aminotransferase 32 units/L (7-56); Albumin 4.5 g/dL (3.9-5); BUN/Creatinine Ratio 13; Blood Urea Nitrogen 13 mg/dL (9-20); Calcium 9.1 mg/dL (8.4-10.2); Chol/HDL Ratio 2.72 %; HDL Cholesterol 43 mg/dL (40-59); Hemolysis Index 22; LDL Cholesterol,Direct 60 mg/dL (50-130)
== END 2020-12-05 14:43 | disposition home or self-care (01) ==
LOC: LAB 14:42
PROVIDERS: ATTEND Internal Medicine Cardiovascular Disease
DX: R07.2 Precordial pain (principal)
CPT/HCPCS: 36415; 80053; 80061; 85027

== ENCOUNTER 2020-12-25 07:41 | Outpatient (CLI) | payer BC, MEDICARE ==
--- NOTE | 2020-12-25 09:13 | Cat Scan Report ---
CT LUMBAR SPINE WITHOUT CONTRAST INDICATION: LUMBAR SPINAL FUSION. TECHNIQUE: Axial CT images of the lumbar spine were obtained. Sagittal and coronal reformatted images were produ anusha. All CT scans at this location are performed using CT dose reduction for ALARA by means of automa christian exposure control. COMPARISON: MRI lumbar spine 08/29/2020 FINDINGS: POST-SURGICAL CHANGES: Status post laminectomy L4-5 with partial resection of the L3 and S1 spinous p rocesses also observed. Status post left lateral interbody fusion L4-5. Status post unilateral segmen ruddy dictation on the left with pedicles demonstrated in the L4 and L5 pedicles connected by posterior fixation bar. Patient is status post dorsal interosseous spinal canal at the T12-L1 level by bilater al intralaminar approach. The cephalad margin of the dorsal column stimulator raise near the inferior endplate of the T7 vertebral body. ALIGNMENT: Normal alignment is maintained throughout the lumbar region. VERTEBRAE: Aside from postoperative changes vertebral morphology is fairly well-maintained. INTERVERTEBRAL DISCS: Loss of disc height and disc vacuum phenomena are noted at the lumbosacral junc tion. [id number] ANALYSIS: L1-2: Mild facet arthropathy is noted. Small anterior and right lateral osteophyte formation is obser gisela. No significant disc abnormality, spinal canal stenosis, or neural foraminal stenosis. L2-3: No significant disc abnormality, spinal canal stenosis, or neural foraminal stenosis. Small ant erior and right lateral osteophytes are noted. L3-4: Partial resection L3 spinous process. Radiopaque foreign bodies present along the anterior marcela in of the left psoas muscle at the L3-4 disc level. L4-5: Postoperative changes as described above. Findings suggest the presence of solid bone union acr oss this postoperative intervertebral disc. A curvilinear radiopaque foreign bodies present in the le ft psoas muscle. L5-S1: Loss of disc height and disc vacuum phenomena are noted. Partial resection of S1 spinous proce ss is observed. Central spinal canal is adequately maintained. Loss of disc height contributes to mod erate bilateral neuroforaminal stenosis at the L5 nerve root level. Sacrum: No intrinsic sacral lesions are identified. Evaluation of the SI joints is remarkable for johann ateral SI joint vacuum phenomenon. PARASPINAL SOFT TISSUES: Calcified atherosclerotic plaque is seen along the course of the abdominal a ovidio and iliac arteries. IMPRESSION: 1. Postoperative changes status post interbody fusion L4-5 with evidence of solid bone union. 2. Advanced degenerative disc disease L5-S1 without evidence of central canal stenosis. Signer Name: Brad Cardenas MD Signed: 12/25/2020 9:08 AM Workstation Name: [id number]
== END 2020-12-25 07:42 | disposition home or self-care (01) ==
LOC: CT 07:41
PROVIDERS: ATTEND Psychiatry & Neurology Neurology
DX: M47.817 Spondylosis without myelopathy or radiculopathy, lumbosacral region (principal); M51.37 Other intervertebral disc degeneration, lumbosacral region; Z98.1 Arthrodesis status
CPT/HCPCS: 72131

== ENCOUNTER 2020-12-29 07:46 | Outpatient (CLI) | payer BC, MEDICARE ==
[2020-12-29] MEDS ORDERED: REGADENOSON 0.4 MG/5 ML INJ IV ONE (09:15)
[2020-12-29 10:10] VITALS: BP 129/66
--- NOTE | 2020-12-30 00:01 | Treadmill Report ---
DATE OF SERVICE: 12/29/2020 NUCLEAR STRESS TEST REFERRING PHYSICIAN: Dr. Adame. DESCRIPTION OF PROCEDURE: The patient was assessed in postoperative state given 10 mCi of technetium at rest. The patient had rest imaging. The patient underwent Lexiscan stress test per standard protocol. At peak stress, the patient was given 26 mCi technetium 99m shortly after the patient had stress imaging. Raw imaging reveals mild GI artifact. No significant motion effect. SPECT images examined carefully in the horizontal long axis, vertical long axis, and short axis views. There is normal homogeneous uptake of radioisotope in all reported segments. No evidence of significant fixed or reversible perfusion defect, suggestive of prior infarction or ischemia. Gated wall motion reveals normal systolic thickening, calculated ejection fraction of 73%. No TID. CONCLUSIONS: 1. Normal myocardial perfusion scan without evidence of active ischemia or prior infarction. 2. Normal left ventricular systolic performance without evidence of transient ischemic dilatation. TID: [id number] RECEIPT: [id number] ERIKA/MOSHE
== END 2020-12-29 07:47 | disposition home or self-care (01) ==
LOC: CARD 07:46
PROVIDERS: ATTEND Internal Medicine Cardiovascular Disease
DX: R07.2 Precordial pain (principal); R06.02 Shortness of breath; I25.2 Old myocardial infarction; E78.49 Other hyperlipidemia; Z95.5 Presence of coronary angioplasty implant and graft
CPT/HCPCS: 78452; 93017; A9502; J2785

== ENCOUNTER 2021-03-31 11:55 | Outpatient (CLI) | payer BC, MEDICARE ==
[2021-03-31 12:10] LABS: Hematocrit 43.9 % (35.5-45.6); Hemoglobin 14.9 gm/dl (11.8-15.2); Mean Corpuscular HGB Conc 34 % (32-34); Mean Corpuscular Volume 98 fl (84-94); Platelet Count 226 K/mm3 (140-440); Red Blood Count 4.47 M/mm3 (3.65-5.03)
[2021-03-31 12:25] LABS: Partial Thromboplastin Time 29.3 Sec. (24.2-36.6)
[2021-03-31 12:28] LABS: Bilirubin,Urine NEG (Negative); Blood,Urine SM (Negative); Color,Urine Yellow (Yellow); Protein,Urine <15 mg/dL mg/dL (Negative); WBC,Urine < 1.0 /HPF (0.0-6.0)
[2021-03-31 12:31] LABS: Alanine Aminotransferase 22 units/L (7-56); Albumin 4.1 g/dL (3.9-5); BUN/Creatinine Ratio 10; Blood Urea Nitrogen 10 mg/dL (9-20); Calcium 8.9 mg/dL (8.4-10.2); Hemolysis Index 16
== END 2021-03-31 11:56 | disposition home or self-care (01) ==
LOC: LAB 11:55
PROVIDERS: ATTEND Internal Medicine
DX: Z01.810 Encounter for preprocedural cardiovascular examination (principal)
CPT/HCPCS: 36415; 80053; 81001; 85027; 85610; 85730

== ENCOUNTER 2021-08-24 15:42 | Outpatient (CLI) | payer BC, MEDICARE ==
--- NOTE | 2021-08-24 23:53 | XRay Report ---
XR spine lumbosacral 2-3V INDICATION / CLINICAL INFORMATION: STATUS POST LUMBAR SPINAL FUSION. COMPARISON: CT on 01/04/2021 FINDINGS: BONES/JOINT(S): Postsurgical changes from lumbar fusion at L4-5 and L5-S1 without hardware fracture o r malalignment. No significant alignment abnormality identified. Otherwise mild generalized spondylos is. SOFT TISSUES: No significant abnormality. ADDITIONAL FINDINGS: None. Signer Name: Jimi Melchor MD Signed: 08/24/2021 5:32 PM Workstation Name: [id number]
== END 2021-08-24 15:43 | disposition home or self-care (01) ==
LOC: XRAY 15:42
PROVIDERS: ATTEND Psychiatry & Neurology Neurology
DX: M47.817 Spondylosis without myelopathy or radiculopathy, lumbosacral region (principal); Z98.1 Arthrodesis status
CPT/HCPCS: 72100

== ENCOUNTER 2021-09-24 12:40 | Outpatient (CLI) | payer BC, MEDICARE ==
--- NOTE | 2021-09-24 14:33 | Cat Scan Report ---
CT LUMBAR SPINE: 09/24/2021 INDICATION / CLINICAL INFORMATION: POST SPINAL FUSION ON JULY 07, 2021 . COMPARISON: CT lumbar spine 12/25/2020 FINDINGS: CT images of the lumbar spine were obtained. Images are evaluated in the axial, coronal, and sagittal planes. Comparison is made to the prior exam from 12/25/2020. Time the prior exam, there have been prior fusion at the L4-5 level. Interval since that exam, there is been additional fusion procedure at the L5-S1 level. Bilateral pedicle screws are again noted at L5 and L4. The disc space appears to be solidly fused. There is now anterior fusion hardware at the L5-S1 level. Disc fusion device is present. Again seen is the spinal stimulator device, with its wire entering the dorsal aspect of the canal at the T12-L1 level and extending upward in the dorsal aspect of the canal. This appearance is no change significantly when compared to the prior exam. PARASPINAL STRUCTURES: Unremarkable. IMPRESSION: Postoperative changes. No acute abnormality. All CT scans at this location are performed using dose reduction to ALARA by means of automated expos ure control. Signer Name: Bran Swan MD Signed: 09/24/2021 2:29 PM Workstation Name: [id number]
== END 2021-09-24 12:41 | disposition home or self-care (01) ==
LOC: CT 12:40
PROVIDERS: ATTEND Psychiatry & Neurology Neurology
DX: M43.27 Fusion of spine, lumbosacral region (principal); Z98.1 Arthrodesis status
CPT/HCPCS: 72131

== ENCOUNTER 2022-01-05 15:00 | Outpatient (CLI) | payer BC, MEDICARE ==
[2022-01-05 16:28] LABS: Basophils # (Auto) 0.1 K/mm3 (0.0-0.1); Basophils % (Auto) 0.7 % (0.0-1.8); Eosinophils # (Auto) 0.3 K/mm3 (0.0-0.4); Eosinophils % (Auto) 3.1 % (0.0-4.3); Hematocrit 45.3 % (35.5-45.6); Hemoglobin 15.4 gm/dl (11.8-15.2); Lymphocytes # (Auto) 3.1 K/mm3 (1.2-5.4); Lymphocytes % (Auto) 32.2 % (13.4-35.0); Mean Corpuscular HGB Conc 34 % (32-34); Mean Corpuscular Volume 99 fl (84-94); Monocytes # (Auto) 0.5 K/mm3 (0.0-0.8); Monocytes % (Auto) 5.2 % (0.0-7.3); Platelet Count 242 K/mm3 (140-440); Red Blood Count 4.58 M/mm3 (3.65-5.03); Red Cell Distribution Width 13.8 % (13.2-15.2)
[2022-01-05 16:59] LABS: Alanine Aminotransferase 24 units/L (7-56); Albumin 4.6 g/dL (3.9-5); BUN/Creatinine Ratio 11; Blood Urea Nitrogen 11 mg/dL (9-20); Calcium 9.4 mg/dL (8.4-10.2); Chol/HDL Ratio 2.51 %; HDL Cholesterol 47 mg/dL (40-59); Hemolysis Index 11; LDL Cholesterol,Direct 55 mg/dL (50-130)
== END 2022-01-05 15:01 | disposition home or self-care (01) ==
LOC: LABHHL 15:00
PROVIDERS: ATTEND Internal Medicine
DX: Z00.00 Encounter for general adult medical examination without abnormal findings (principal); E78.5 Hyperlipidemia, unspecified; R73.9 Hyperglycemia, unspecified; N40.1 Benign prostatic hyperplasia with lower urinary tract symptoms; I10 Essential (primary) hypertension
CPT/HCPCS: 36415; 80053; 80061; 82306; 83036; 84153; 84443; 85025